=== PATIENT | male | born 1955 | race Caucasian/White ===

== ENCOUNTER 2017-09-09 12:49 | Emergency (ER) | payer MEDICAID, OTHER ==
[~2017-09-09] VITALS: Ht 172.7 cm; Wt 89.4 kg
[~2017-09-09 12:49] MED LIST: ASPI81TA10; BUSP7.5T4; ENAL-3; GABA100C9; HYDR25TA4; LORA-653; TEMA15CA
[2017-09-09 13:55] LABS: Basophils # (auto) 0.1 uL; Basophils % (auto) 1.2 % (0.0-2.0); Eosinophils # (auto) 0.1 uL; Eosinophils % (auto) 2.7 % (0.0-7.0); Hematocrit 45.3 % (41.0-53.0); Hemoglobin 15.9 g/dL (13.5-17.5); Lymphocytes # (auto) 1.1 uL; Lymphocytes % (auto) 19.8 % (10.0-50.0); Mean Corpuscular Hemoglobin 29.8 pg (28.0-32.0); Mean Corpuscular Hgb Conc. 35.1 g/dL (32.0-36.0); Mean Corpuscular Volume 84.9 fL (80.0-100.0); Monocytes # (auto) 0.4 uL; Monocytes % (auto) 7.4 % (0.0-12.0); Neutrophils # (auto) 3.8 uL; Neutrophils % (auto) 68.9 % (37.0-80.0); Platelet Count (auto) 191 10^3/uL (140-450); Red Blood Cells 5.33 10^6/uL (4.5-5.90); Red Cell Distribution Width 13.7 % (11.8-14.3); White Blood Cell 5.5 10^3/uL (4.4-10.8)
[2017-09-09 14:10] LABS: INR 1.05 (0.9-1.15); Partial Thromboplastin Time 25.7 sec (22.64-33.71); Prothrombin Time 11.4 sec (9.37-12.3)
[2017-09-09 14:15] LABS: Albumin 4.4 g/dL (3.4-5.0); BUN/Creatinine Ratio 20.3; Bilirubin, Total 1.6 mg/dL (0.2-1.0); Calcium 8.8 mg/dL (8.5-10.1); Potassium 3.9 mmol/L (3.5-5.1); Total Protein 8.1 g/dL (6.4-8.2)
[2017-09-09 15:13] VITALS: BP 152/95
== END 2017-09-09 15:25 | disposition home or self-care (01) ==
LOC: ER 12:49
DX: R04.0 Epistaxis (principal); I10 Essential (primary) hypertension; R42 Dizziness and giddiness; Z79.899 Other long term (current) drug therapy; Z79.82 Long term (current) use of aspirin
CPT/HCPCS: 36415; 70450; 80053; 85025; 85610; 85730; 93005

== ENCOUNTER 2017-09-12 08:29 | Emergency (ER) | payer MEDICAID ==
[~2017-09-12] VITALS: Ht 175.3 cm; Wt 90.8 kg
[2017-09-12 08:35] VITALS: BP 144/82
== END 2017-09-12 09:21 | disposition home or self-care (01) ==
LOC: ER 08:29
DX: R04.0 Epistaxis (principal); I10 Essential (primary) hypertension; Z90.89 Acquired absence of other organs

== ENCOUNTER 2017-09-22 13:56 | Emergency (ER) | payer SELFPAY ==
[~2017-09-22] VITALS: Ht 172.7 cm; Wt 90.7 kg
[2017-09-22] MEDS ORDERED: SODIUM CHLORIDE 0.9% 1,000 ML IVB ONE (14:25)
[2017-09-22] MEDS ORDERED: ASPirin 81 mg TAB PO ONE (14:30)
[2017-09-22] MEDS ORDERED: DILTIAZEM HCL 25 MG/5 ML VIAL IV ONE (14:30)
[2017-09-22] MEDS ORDERED: DILTIAZEM HCL 120MG ER CAP PO ONE (14:45)
[2017-09-22 14:56] LABS: Basophils # (auto) 0.1 uL; Eosinophils # (auto) 0.1 uL; Eosinophils % (auto) 1.8 % (0.0-7.0); Hematocrit 36.8 % (41.0-53.0); Lymphocytes # (auto) 1.1 uL; Lymphocytes % (auto) 16.6 % (10.0-50.0); Mean Corpuscular Hemoglobin 30.1 pg (28.0-32.0); Mean Corpuscular Hgb Conc. 35.4 g/dL (32.0-36.0); Mean Corpuscular Volume 85.2 fL (80.0-100.0); Monocytes # (auto) 0.6 uL; Monocytes % (auto) 9.4 % (0.0-12.0); Neutrophils # (auto) 4.6 uL; Neutrophils % (auto) 70.2 % (37.0-80.0); Nucleated Red Blood Cells % 0.1 %; Platelet Count (auto) 244 10^3/uL (140-450); Red Blood Cells 4.32 10^6/uL (4.5-5.90); Red Cell Distribution Width 13.8 % (11.8-14.3); White Blood Cell 6.6 10^3/uL (4.4-10.8)
[2017-09-22 15:20] LABS: Alanine Aminotransferase 20 U/L (16-61); Albumin 3.8 g/dL (3.4-5.0); Alkaline Phosphatase 60 U/L (45-117); Anion Gap 12 (5-15); Aspartate Aminotransferase 15 U/L (15-37); BUN/Creatinine Ratio 20.9; Bilirubin, Total 1.2 mg/dL (0.2-1.0); Blood Urea Nitrogen 18 mg/dL (7-18); Calcium 7.9 mg/dL (8.5-10.1); Carbon Dioxide 18 mmol/L (21-32); Chloride 109 mmol/L (98-107); GFR African American 115 mL/min; GFR Non-African American 95 mL/min; Glucose 93 mg/dL (74-106); Magnesium 1.9 mg/dL (1.6-2.6); Potassium 3.5 mmol/L (3.5-5.1); Sodium 139 mmol/L (136-145); Total Protein 6.8 g/dL (6.4-8.2)
[2017-09-22 16:22] VITALS: BP 129/77
== END 2017-09-22 16:53 | disposition home or self-care (01) ==
LOC: ER 13:56
DX: I47.1 Supraventricular tachycardia (principal); Z90.89 Acquired absence of other organs
CPT/HCPCS: 36415; 71046; 80053; 83735; 84443; 84484; 85025; 85379; 93005; 94761; 99285; J7030

== ENCOUNTER 2019-03-07 11:25 | Emergency (ER) | payer OTHER, MEDICAID ==
[~2019-03-07] VITALS: Ht 175.3 cm; Wt 81.6 kg
[~2019-03-07 11:25] MED LIST changes: -ENAL-3; +ENAL10TA2; -LORA-653; +LORA0.5T11
[2019-03-07 12:28] LABS: Basophils # (auto) 0.1 uL; Basophils % (auto) 1.7 % (0.0-2.0); Eosinophils # (auto) 0.1 uL; Eosinophils % (auto) 1.9 % (0.0-7.0); Hemoglobin 14.6 g/dL (13.5-17.5); Lymphocytes # (auto) 0.9 uL; Lymphocytes % (auto) 15.9 % (10.0-50.0); Mean Corpuscular Hemoglobin 30.1 pg (28.0-32.0); Mean Corpuscular Hgb Conc. 34.7 g/dL (32.0-36.0); Mean Corpuscular Volume 86.7 fL (80.0-100.0); Monocytes # (auto) 0.5 uL; Monocytes % (auto) 8.4 % (0.0-12.0); Neutrophils # (auto) 4.1 uL; Neutrophils % (auto) 72.1 % (37.0-80.0); Platelet Count (auto) 189 10^3/uL (140-450); Red Blood Cells 4.85 10^6/uL (4.5-5.90); Red Cell Distribution Width 14.8 % (11.8-14.3); White Blood Cell 5.8 10^3/uL (4.4-10.8)
[2019-03-07 12:43] LABS: Alanine Aminotransferase 33 U/L (16-61); Albumin 3.8 g/dL (3.4-5.0); Anion Gap 7 (5-15); Blood Urea Nitrogen 21 mg/dL (7-18); Calcium 8.6 mg/dL (8.5-10.1); Carbon Dioxide 25 mmol/L (21-32); Chloride 108 mmol/L (98-107); Glucose 101 mg/dL (74-106); Potassium 3.8 mmol/L (3.5-5.1); Sodium 140 mmol/L (136-145)
[2019-03-07 12:49] LABS: Alkaline Phosphatase 56 U/L (45-117); Aspartate Aminotransferase 16 U/L (15-37); BUN/Creatinine Ratio 26.3; Bilirubin, Total 1.3 mg/dL (0.2-1.0); GFR African American 125 mL/min; GFR Non-African American 103 mL/min; Total Protein 7.6 g/dL (6.4-8.2)
[2019-03-07 12:53] LABS: INR 1.01 (0.9-1.15)
[2019-03-07 15:03] VITALS: BP 144/78
== END 2019-03-07 15:31 | disposition home or self-care (01) ==
LOC: ER 11:25
DX: R41.3 Other amnesia (principal); I10 Essential (primary) hypertension; Z90.89 Acquired absence of other organs; F41.9 Anxiety disorder, unspecified
CPT/HCPCS: 36415; 70450; 71046; 80053; 84484; 85025; 85610; 85730; 93005; 94761

== ENCOUNTER 2021-04-03 10:41 | Emergency (ER) | payer OTHER, MEDICAID ==
[~2021-04-03] VITALS: Ht 172.7 cm; Wt 90.7 kg
[~2021-04-03 10:41] MED LIST changes: -BUSP7.5T4; +BUSP7.5T8; +ENAL10TA13; -ENAL10TA2; -LORA0.5T11; +LORA0.5T19
[2021-04-03] MEDS ORDERED: SODIUM CHLORIDE 0.9% 500 ML IV ONE (11:15)
[2021-04-03 11:33] LABS: Basophils # (auto) 0.1 10 ^3/uL (0-0.2); Basophils % (auto) 1.9 % (0.0-2.0); Eosinophils # (auto) 0.1 10 ^3/uL (0-0.8); Hematocrit 44.5 % (41.0-53.0); Hemoglobin 15.5 g/dL (13.5-17.5); Lymphocytes # (auto) 1.2 10 ^3/uL (0.4-5.4); Lymphocytes % (auto) 25.2 % (10.0-50.0); Mean Corpuscular Hemoglobin 29.3 pg (28.0-32.0); Mean Corpuscular Hgb Conc. 34.9 g/dL (32.0-36.0); Mean Corpuscular Volume 83.9 fL (80.0-100.0); Monocytes # (auto) 0.4 10 ^3/uL (0-1.3); Monocytes % (auto) 8.6 % (0.0-12.0); Neutrophils % (auto) 61.3 % (37.0-80.0); Red Cell Distribution Width 14.3 % (11.8-14.3); White Blood Cell 4.9 10^3/uL (4.4-10.8)
[2021-04-03 11:37] LABS: Urine Bacteria NONE SEEN /hpf (None Seen); Urine Blood Negative /uL (Negative); Urine Mucus FEW (None Seen); Urine Specific Gravity 1.019 (1.001-1.035); Urine WBC 2 /hpf (0 - 3)
[2021-04-03 11:50] LABS: Potassium 4.9 mmol/L (3.5-5.1)
[2021-04-03 11:53] LABS: Albumin 4.1 g/dL (3.4-5.0); BUN/Creatinine Ratio 16.2; Calcium 9.5 mg/dL (8.5-10.1); Magnesium 2.3 mg/dL (1.6-2.6)
[2021-04-03 11:56] LABS: Bilirubin, Total 0.9 mg/dL (0.2-1.0)
[2021-04-03] MEDS ORDERED: cefTRIAXone 1GM/50ML D5W 50 ML IV ONE (12:15)
[2021-04-03 12:29] VITALS: BP 131/75
== END 2021-04-03 13:04 | disposition home or self-care (01) ==
LOC: ER 10:41
DX: N39.0 Urinary tract infection, site not specified (principal); R42 Dizziness and giddiness; I10 Essential (primary) hypertension; Z87.442 Personal history of urinary calculi
CPT/HCPCS: 36415; 74176; 80053; 81001; 83735; 85025; 93005; 96365; 99285; J0696; J7030

== ENCOUNTER 2021-10-19 11:49 | Emergency (ER) | payer OTHER, MEDICAID ==
[~2021-10-19] VITALS: Ht 172.7 cm; Wt 95.3 kg
[2021-10-19 11:55] VITALS: BP 121/76
[2021-10-19 12:43] LABS: Urine Bacteria NONE SEEN /hpf (None Seen); Urine Blood Negative /uL (Negative); Urine Specific Gravity 1.025 (1.001-1.035); Urine WBC 1 /hpf (0 - 3)
[2021-10-19 13:21] LABS: Basophils # (auto) 0.1 10 ^3/uL (0-0.2); Basophils % (auto) 2.1 % (0.0-2.0); Eosinophils # (auto) 0.2 10 ^3/uL (0-0.8); Eosinophils % (auto) 4.3 % (0.0-7.0); Hematocrit 42.9 % (41.0-53.0); Hemoglobin 15.1 g/dL (13.5-17.5); Lymphocytes # (auto) 1.1 10 ^3/uL (0.4-5.4); Mean Corpuscular Hemoglobin 29.6 pg (28.0-32.0); Mean Corpuscular Hgb Conc. 35.3 g/dL (32.0-36.0); Monocytes # (auto) 0.4 10 ^3/uL (0-1.3); Monocytes % (auto) 8.9 % (0.0-12.0); Neutrophils # (auto) 2.5 10 ^3/uL (1.6-8.6); Neutrophils % (auto) 58.7 % (37.0-80.0); Nucleated Red Blood Cells % 0.2 %; Red Blood Cells 5.11 10^6/uL (4.5-5.90); Red Cell Distribution Width 13.8 % (11.8-14.3); White Blood Cell 4.3 10^3/uL (4.4-10.8)
[2021-10-19 13:32] LABS: Albumin 4.2 g/dL (3.4-5.0); Calcium 8.9 mg/dL (8.5-10.1); Potassium 4.6 mmol/L (3.5-5.1)
[2021-10-19 13:34] LABS: BUN/Creatinine Ratio 27.7; Bilirubin, Total 1.1 mg/dL (0.2-1.0)
== END 2021-10-19 15:12 | disposition home or self-care (01) ==
LOC: ER 11:49
DX: R31.9 Hematuria, unspecified (principal); I10 Essential (primary) hypertension; Z90.89 Acquired absence of other organs
CPT/HCPCS: 36415; 80053; 81001; 85025; 93005

== ENCOUNTER 2021-11-09 10:52 | Emergency (ER) | payer OTHER, MEDICAID ==
[~2021-11-09] VITALS: Ht 172.7 cm; Wt 95.3 kg
[2021-11-09] MEDS ORDERED: SODIUM CHLORIDE 0.9% 1,000 ML IV ONE (11:45)
[2021-11-09] MEDS ORDERED: SODIUM CHLORIDE 0.9% 500 ML IVB ONE (11:45)
[2021-11-09 11:53] LABS: Basophils # (auto) 0.1 10 ^3/uL (0-0.2); Basophils % (auto) 1.3 % (0.0-2.0); Eosinophils # (auto) 0.1 10 ^3/uL (0-0.8); Eosinophils % (auto) 1.9 % (0.0-7.0); Hematocrit 42.3 % (41.0-53.0); Hemoglobin 14.7 g/dL (13.5-17.5); Lymphocytes # (auto) 0.8 10 ^3/uL (0.4-5.4); Lymphocytes % (auto) 17.3 % (10.0-50.0); Mean Corpuscular Hemoglobin 29.3 pg (28.0-32.0); Mean Corpuscular Hgb Conc. 34.7 g/dL (32.0-36.0); Mean Corpuscular Volume 84.7 fL (80.0-100.0); Monocytes # (auto) 0.3 10 ^3/uL (0-1.3); Monocytes % (auto) 7.3 % (0.0-12.0); Neutrophils # (auto) 3.4 10 ^3/uL (1.6-8.6); Neutrophils % (auto) 72.2 % (37.0-80.0); Nucleated Red Blood Cells % 0.1 %; Red Cell Distribution Width 13.6 % (11.8-14.3); White Blood Cell 4.7 10^3/uL (4.4-10.8)
[2021-11-09 12:08] LABS: Urine Bacteria NONE SEEN /hpf (None Seen); Urine Blood Negative /uL (Negative); Urine Specific Gravity 1.021 (1.001-1.035); Urine WBC 1 /hpf (0 - 3)
[2021-11-09 12:15] LABS: Albumin 4.4 g/dL (3.4-5.0); BUN/Creatinine Ratio 27.8; Potassium 4.1 mmol/L (3.5-5.1)
[2021-11-09 12:17] LABS: Bilirubin, Total 0.8 mg/dL (0.2-1.0); Total Protein 7.7 g/dL (6.4-8.2)
[2021-11-09] MEDS ORDERED: KETOROLAC TROMETH 30 MG/ML 1ML VIAL IV ONE (13:00)
[2021-11-09 14:20] VITALS: BP 162/73
[2021-11-09] MEDS ORDERED: NAPR220C PO ×2 (15:34→15:57)
[2021-11-09] MEDS ORDERED: CYCL-837 PO ×2 (15:34→15:57)
== END 2021-11-09 16:03 | disposition home or self-care (01) ==
LOC: ER 10:52
DX: M54.12 Radiculopathy, cervical region (principal); F41.8 Other specified anxiety disorders; G30.9 Alzheimer's disease, unspecified; F02.80 Dementia in other diseases classified elsewhere, unspecified severity, without behavioral disturbance, psychotic disturbance, mood disturbance, and anxiety; I10 Essential (primary) hypertension; Z90.89 Acquired absence of other organs
CPT/HCPCS: 36415; 70450; 71045; 72125; 80053; 81001; 83735; 84443; 84484; 85025; 93005; 96361; 96374; 99285; J1885; J7030; J7040

== ENCOUNTER 2022-11-30 14:24 | Emergency (ER) | payer OTHER, MEDICAID ==
[~2022-11-30] VITALS: Ht 175.3 cm; Wt 86.5 kg
[~2022-11-30 14:24] MED LIST changes: +CYCL-837 PO; -ENAL10TA13; +ENAL1TAB47; +GABA-1308; -GABA100C9; +LORA-1120; -LORA0.5T19; +NAPR220C PO
[2022-11-30 14:53] LABS: Basophils # (auto) 0.1 10 ^3/uL (0-0.2); Basophils % (auto) 1.2 % (0.0-2.0); Eosinophils # (auto) 0.1 10 ^3/uL (0-0.8); Eosinophils % (auto) 1.8 % (0.0-7.0); Hematocrit 40.1 % (41.0-53.0); Hemoglobin 13.6 g/dL (13.5-17.5); Lymphocytes # (auto) 0.9 10 ^3/uL (0.4-5.4); Lymphocytes % (auto) 17.1 % (10.0-50.0); Mean Corpuscular Hemoglobin 28.6 pg (28.0-32.0); Mean Corpuscular Volume 84.2 fL (80.0-100.0); Monocytes # (auto) 0.4 10 ^3/uL (0-1.3); Monocytes % (auto) 8.3 % (0.0-12.0); Neutrophils # (auto) 3.7 10 ^3/uL (1.6-8.6); Neutrophils % (auto) 71.6 % (37.0-80.0); Nucleated Red Blood Cells % 0.1 %; Red Blood Cells 4.77 10^6/uL (4.5-5.90); Red Cell Distribution Width 14.6 % (11.8-14.3); White Blood Cell 5.2 10^3/uL (4.4-10.8)
[2022-11-30 15:11] LABS: Calcium 8.9 mg/dL (8.5-10.1); Potassium 4.1 mmol/L (3.5-5.1)
[2022-11-30 15:16] LABS: BUN/Creatinine Ratio 15.7 (10.0-20.0); Total Protein 7.1 g/dL (6.4-8.2)
[2022-11-30 15:19] LABS: INR 1.09 (0.9-1.15); Partial Thromboplastin Time 26.3 SEC (24.5-34.5)
[2022-11-30 15:26] LABS: Urine Bacteria NONE SEEN /hpf (None Seen); Urine Blood Negative /uL (Negative); Urine Mucus FEW (None Seen); Urine WBC 1 /hpf (0 - 3)
[2022-11-30 17:35] VITALS: BP 133/80
== END 2022-11-30 17:37 | disposition home or self-care (01) ==
LOC: ER 14:24
DX: R07.89 Other chest pain (principal); F41.9 Anxiety disorder, unspecified; I10 Essential (primary) hypertension; Z87.442 Personal history of urinary calculi; Z90.89 Acquired absence of other organs; Z79.82 Long term (current) use of aspirin; Z79.899 Other long term (current) drug therapy
CPT/HCPCS: 36415; 71045; 80053; 81001; 84484; 85025; 85610; 85730; 93005

== ENCOUNTER 2023-02-09 13:03 | Emergency (ER) | payer OTHER, MEDICAID ==
[~2023-02-09] VITALS: Ht 175.3 cm; Wt 88.6 kg
[2023-02-09 17:02] LABS: Basophils # (auto) 0.1 10 ^3/uL (0-0.2); Basophils % (auto) 1.2 % (0.0-2.0); Eosinophils # (auto) 0.1 10 ^3/uL (0-0.8); Eosinophils % (auto) 1.6 % (0.0-7.0); Hematocrit 43.3 % (41.0-53.0); Hemoglobin 14.8 g/dL (13.5-17.5); Lymphocytes # (auto) 1.4 10 ^3/uL (0.4-5.4); Lymphocytes % (auto) 19.3 % (10.0-50.0); Mean Corpuscular Hemoglobin 29.9 pg (28.0-32.0); Mean Corpuscular Hgb Conc. 34.2 g/dL (32.0-36.0); Mean Corpuscular Volume 87.2 fL (80.0-100.0); Monocytes # (auto) 0.6 10 ^3/uL (0-1.3); Monocytes % (auto) 7.6 % (0.0-12.0); Neutrophils # (auto) 5.3 10 ^3/uL (1.6-8.6); Neutrophils % (auto) 70.3 % (37.0-80.0); Nucleated Red Blood Cells % 0.1 %; Red Blood Cells 4.97 10^6/uL (4.5-5.90); Red Cell Distribution Width 14.6 % (11.8-14.3); White Blood Cell 7.5 10^3/uL (4.4-10.8)
[2023-02-09 17:19] LABS: INR 1.13 (0.9-1.15); Prothrombin Time 11.8 sec (9.3-11.8)
[2023-02-09 17:23] LABS: Alanine Aminotransferase 12 U/L (7-40); Albumin 5.3 g/dL (3.2-4.8); Alkaline Phosphatase 71 U/L (46-116); Anion Gap 8 (5-15); Aspartate Aminotransferase 23 U/L (13-40); BUN/Creatinine Ratio 24.1 (10.0-20.0); Bilirubin, Total 1.5 mg/dL (0.2-1.0); Blood Urea Nitrogen 26 mg/dL (9-23); Calcium 9.9 mg/dL (8.7-10.4); Carbon Dioxide 24 mmol/L (20-30); Chloride 106 mmol/L (98-107); Glucose 92 mg/dL (74-106); Potassium 4.2 mmol/L (3.5-5.1); Sodium 138 mmol/L (136-145); Total Protein 7.4 g/dL (5.7-8.2)
[2023-02-09] MEDS ORDERED: SODIUM CHLORIDE 0.9% 1,000 ML IV ONE (19:45)
[2023-02-09 23:02] VITALS: BP 132/74; PULSE 68; RESP 18; TEMP 98.2; O2SAT 98
== END 2023-02-09 23:05 | disposition home or self-care (01) ==
LOC: EDBD 13:03 → ER 13:03 → EDUNIT# 13:03 → ER 23:05
DX: G20 Parkinson's disease (principal); F41.9 Anxiety disorder, unspecified; I10 Essential (primary) hypertension; Z79.899 Other long term (current) drug therapy; Z87.442 Personal history of urinary calculi; Z90.89 Acquired absence of other organs
CPT/HCPCS: 36415; 71045; 71275; 80053; 83880; 84484; 85025; 85379; 85610; 93005

== ENCOUNTER 2023-05-24 16:21 | Inpatient (IN) | payer OTHER, MEDICAID ==
[~2023-05-24] VITALS: Ht 172.7 cm; Wt 72.7 kg
[2023-05-24 17:27] LABS: Basophils # (auto) 0 10 ^3/uL (0-0.2); Basophils % (auto) 0.8 % (0.0-2.0); Eosinophils # (auto) 0 10 ^3/uL (0-0.8); Eosinophils % (auto) 0.8 % (0.0-7.0); Hematocrit 36.6 % (41.0-53.0); Hemoglobin 12.5 g/dL (13.5-17.5); Lymphocytes # (auto) 0.5 10 ^3/uL (0.4-5.4); Lymphocytes % (auto) 9.1 % (10.0-50.0); Mean Corpuscular Hemoglobin 29.9 pg (28.0-32.0); Mean Corpuscular Hgb Conc. 34.1 g/dL (32.0-36.0); Mean Corpuscular Volume 87.7 fL (80.0-100.0); Monocytes # (auto) 0.5 10 ^3/uL (0-1.3); Monocytes % (auto) 8.8 % (0.0-12.0); Neutrophils # (auto) 4.8 10 ^3/uL (1.6-8.6); Neutrophils % (auto) 80.5 % (37.0-80.0); Red Blood Cells 4.17 10^6/uL (4.5-5.90); Red Cell Distribution Width 13.8 % (11.8-14.3)
[2023-05-24 17:45] LABS: Albumin 4.4 g/dL (3.2-4.8); Alkaline Phosphatase 67 U/L (46-116); Anion Gap 9 (5-15); Aspartate Aminotransferase 18 U/L (13-40); BUN/Creatinine Ratio 26.5 (10.0-20.0); Bilirubin, Total 1.3 mg/dL (0.2-1.0); Blood Urea Nitrogen 35 mg/dL (9-23); Calcium 8.9 mg/dL (8.7-10.4); Carbon Dioxide 24 mmol/L (20-30); Chloride 107 mmol/L (98-107); Glucose 103 mg/dL (74-106); Potassium 4.7 mmol/L (3.5-5.1); Sodium 140 mmol/L (136-145); Total Protein 6.5 g/dL (5.7-8.2)
[2023-05-24 17:48] LABS: Alanine Aminotransferase 9 U/L (7-40)
[2023-05-24] MEDS ORDERED: SODIUM CHLORIDE 0.9% 1,000 ML IVB ONE (18:45)
[2023-05-24 20:27] VITALS: PULSE 58; RESP 20; O2SAT 98
[2023-05-24] MEDS ORDERED: ONDANSETRON HCL 4 MG/2 ML VIAL IV PRN (21:45)
[2023-05-24] MEDS: CARBIDOPA W LEVODOPA 25/100mg TABLET PO SCH (22:17)
[2023-05-24] MEDS: DONEPEZIL HYDROCHLORIDE 5 MG TAB PO SCH (22:17)
[2023-05-25] MEDS: CARBIDOPA W LEVODOPA 25/100mg TABLET PO SCH ×3 (06:04→21:28)
[2023-05-25 06:38] LABS: Anion Gap 9 (5-15); Carbon Dioxide 23 mmol/L (20-30); Chloride 109 mmol/L (98-107); Potassium 3.9 mmol/L (3.5-5.1); Sodium 141 mmol/L (136-145)
[2023-05-25 06:39] LABS: Calcium 9.1 mg/dL (8.7-10.4)
[2023-05-25 06:44] LABS: BUN/Creatinine Ratio 23.2 (10.0-20.0); Blood Urea Nitrogen 26 mg/dL (9-23); Glucose 84 mg/dL (74-106)
[2023-05-25 08:00] VITALS: PULSE 65; RESP 16; O2SAT 98
[2023-05-25 08:15] LABS: Urine Bacteria FEW /hpf (None Seen); Urine Blood Negative /uL (Negative); Urine Clarity Clear (Clear); Urine Color Yellow (Yellow); Urine Mucus FEW (None Seen); Urine Protein, UAD TRACE (Negative); Urine Specific Gravity 1.021 (1.001-1.035); Urine Urobilinogen Normal (Negative); Urine WBC 2 /hpf (0 - 3); Urine pH 5.5 (5.0-8.0)
[2023-05-25] MEDS: ENOXAPARIN SOD 40 MG/0.4 ML SYRINGE SC SCH (09:43)
[2023-05-25] MEDS: cefTRIAXone 1GM/50ML D5W 50 ML IV SCH (09:43)
[2023-05-25] MEDS: FINASTERIDE 5 MG TAB PO SCH ×2 (09:43→16:09)
[2023-05-25] MEDS: hydrALAZINE HCL 20 MG/ML VL IV PRN ×2 (10:34→21:31)
[2023-05-25 12:48] VITALS: PULSE 78; RESP 17; O2SAT 96
[2023-05-25 14:10] VITALS: BP 177/88; PULSE 78; RESP 17; TEMP 98; O2SAT 96
[2023-05-25] MEDS ORDERED: LORazepam 0.5 MG TAB PO PRN (15:00)
[2023-05-25] MEDS: ASPirin-EC 81 mg tab PO SCH (16:07)
[2023-05-25] MEDS: ENALAPRIL MALEATE 10 MG TAB PO SCH (16:07)
[2023-05-25] MEDS: GABAPENTIN 100 MG CAP PO SCH (16:08)
[2023-05-25] MEDS: hydroCHLOROthiazide 25 MG TAB PO SCH (16:08)
[2023-05-25 17:08] VITALS: BP 187/84; PULSE 80; RESP 18; TEMP 98.2; O2SAT 95
[2023-05-25] MEDS ORDERED: TAMSULOSIN HYDROCHLORIDE 0.4 MG CAP PO SCH (18:00)
[2023-05-25 20:00] VITALS: BP 154/67; PULSE 87; RESP 18; RESP 22; TEMP 98.9; O2SAT 97
[2023-05-25] MEDS: DONEPEZIL HYDROCHLORIDE 5 MG TAB PO SCH (21:28)
[2023-05-25 22:00] VITALS: BP 146/82; PULSE 68; RESP 19; TEMP 98; O2SAT 97
[2023-05-26 02:04] VITALS: BP 111/85
[2023-05-26] MEDS ORDERED: ACETAMINOPHEN 325 MG TAB PO ONE (02:30)
[2023-05-26 03:50] VITALS: BP 149/98; PULSE 58; RESP 19; TEMP 98.2; O2SAT 97
[2023-05-26 05:17] VITALS: BP 120/72; PULSE 55
[2023-05-26] MEDS: CARBIDOPA W LEVODOPA 25/100mg TABLET PO SCH (05:52)
[2023-05-26 06:28] LABS: Basophils # (auto) 0.1 10 ^3/uL (0-0.2); Basophils % (auto) 1.6 % (0.0-2.0); Eosinophils # (auto) 0.2 10 ^3/uL (0-0.8); Eosinophils % (auto) 3.5 % (0.0-7.0); Hematocrit 36.8 % (41.0-53.0); Hemoglobin 12.6 g/dL (13.5-17.5); Lymphocytes # (auto) 1.2 10 ^3/uL (0.4-5.4); Lymphocytes % (auto) 21.7 % (10.0-50.0); Mean Corpuscular Hemoglobin 30.1 pg (28.0-32.0); Mean Corpuscular Hgb Conc. 34.2 g/dL (32.0-36.0); Mean Corpuscular Volume 87.9 fL (80.0-100.0); Monocytes # (auto) 0.7 10 ^3/uL (0-1.3); Monocytes % (auto) 12.7 % (0.0-12.0); Neutrophils # (auto) 3.4 10 ^3/uL (1.6-8.6); Neutrophils % (auto) 60.5 % (37.0-80.0); Red Blood Cells 4.19 10^6/uL (4.5-5.90); Red Cell Distribution Width 13.9 % (11.8-14.3); White Blood Cell 5.6 10^3/uL (4.4-10.8)
[2023-05-26 06:47] LABS: Chloride 107 mmol/L (98-107); Potassium 3.7 mmol/L (3.5-5.1); Sodium 140 mmol/L (136-145)
[2023-05-26 06:48] LABS: Anion Gap 8 (5-15); Carbon Dioxide 25 mmol/L (20-30)
[2023-05-26 06:49] LABS: Calcium 9.4 mg/dL (8.5-10.1)
[2023-05-26 06:53] LABS: BUN/Creatinine Ratio 17.4 (10.0-20.0); Blood Urea Nitrogen 16 mg/dL (9-23); Glucose 87 mg/dL (74-106)
[2023-05-26 08:00] VITALS: BP 163/87; PULSE 81; RESP 18; TEMP 98.9; O2SAT 94
[2023-05-26] MEDS: ENOXAPARIN SOD 40 MG/0.4 ML SYRINGE SC SCH (09:09)
[2023-05-26] MEDS: cefTRIAXone 1GM/50ML D5W 50 ML IV SCH (09:09)
[2023-05-26] MEDS: hydroCHLOROthiazide 25 MG TAB PO SCH (09:10)
[2023-05-26] MEDS: ASPirin-EC 81 mg tab PO SCH (09:10)
[2023-05-26] MEDS: ENALAPRIL MALEATE 10 MG TAB PO SCH (09:10)
[2023-05-26] MEDS: GABAPENTIN 100 MG CAP PO SCH (09:10)
[2023-05-26] MEDS: FINASTERIDE 5 MG TAB PO SCH (09:12)
[2023-05-26] MEDS ORDERED: GABAPENTIN 100 MG CAP PO SCH (10:00)
[2023-05-26] MEDS ORDERED: ENALAPRIL MALEATE 10 MG TAB PO SCH (10:00)
[2023-05-26] MEDS ORDERED: ASPirin-EC 81 mg tab PO SCH (10:00)
[2023-05-26] MEDS ORDERED: hydroCHLOROthiazide 25 MG TAB PO SCH (10:00)
== END 2023-05-26 13:32 | disposition home or self-care (01) | DRG 312 ==
LOC: EDBD 16:21 → ER 16:21 → OVERFLOW 21:48 → TELE-WESTW 21:48 → WEST WING 05-25 11:58 → TELE-WESTW 05-25 13:24
PROVIDERS: ADMIT Internal Medicine Pulmonary Disease; ATTEND Internal Medicine Pulmonary Disease
DX: I95.2 Hypotension due to drugs (principal); N17.9 Acute kidney failure, unspecified; N39.0 Urinary tract infection, site not specified; N18.9 Chronic kidney disease, unspecified; F41.9 Anxiety disorder, unspecified; I12.9 Hypertensive chronic kidney disease with stage 1 through stage 4 chronic kidney disease, or unspecified chronic kidney disease; G20.A1 Parkinson's disease without dyskinesia, without mention of fluctuations; F02.80 Dementia in other diseases classified elsewhere, unspecified severity, without behavioral disturbance, psychotic disturbance, mood disturbance, and anxiety; Z87.442 Personal history of urinary calculi; Z83.3 Family history of diabetes mellitus; Z80.9 Family history of malignant neoplasm, unspecified; N40.1 Benign prostatic hyperplasia with lower urinary tract symptoms
CPT/HCPCS: 36415; 70450; 71045; 74176; 80048; 80053; 81001; 83605; 83690; 84484; 85025; 87040; 87086; 93005; 96361; 96365; 96372; 96375; G0378

== ENCOUNTER 2025-04-04 12:53 | Inpatient (IN) | payer MEDICARE, MEDICAID ==
[~2025-04-04] VITALS: Ht 185.4 cm; Wt 78.1 kg
--- NOTE | 2025-04-04 13:59 | ED.PDOC ---
History of Present Illness HPI Comments Mr. Gibbs is a 69-year-old male with prior medical history of dementia, hypertension, and Parkinson's disease, who presents today due altered mental status and word slurring. Per his Lisa, the patient suddenly became confused and stated he was dizzy and feeling weak, and began slurring his words. He denies headache, loss of consciousness, numbness, focal weakness or paralysis, nausea, vomiting, fever, chest pain, shortness of breath, numbness, diarrhea, dysuria, hematuria, and palpitations. Due to persistence of the symptoms, he was brought to the emergency department by his . On initial presentation, the patient is alert and oriented, vitals are stable, speaking clearly, without signs of overt distress. Chief Complaint: ALOC Time Seen by MD: 12:59 Primary Care Provider: UNKNOWN Allergies: Coded Allergies: NO KNOWN ALLERGIES (Unverified , 09/24/12) Home Meds Active Scripts Cyclobenzaprine Hcl (Cyclobenzaprine Hcl) 5 Mg Tab, 1 TAB PO TID for 15 Days, #45 TAB Prov:GALO GORDILLO MD 11/09/21 Naproxen Sodium (Aleve) 220 Mg Cap, 220 MG PO BID for 10 Days, #20 CAP Prov:GALO GORDILLO MD 11/09/21 Reported Medications Aspirin (Aspirin Ec Low Dose) 81 Mg Tab, #90 01/20/16 Temazepam (Temazepam) 15 Mg Cap, #10 01/20/16 Lorazepam (Lorazepam) 0.5 Mg Tab, #30 01/20/16 Gabapentin (Gabapentin) 100 Mg Cap, #90 01/20/16 Hydrochlorothiazide (Hydrochlorothiazide) 25 Mg Tab, #90 01/20/16 Enalapril Maleate (Enalapril Maleate) 10 Mg Tab, #90 01/20/16 Buspirone Hcl (Buspirone Hcl) 7.5 Mg Tab, #60 01/20/16 Information Source: Patient, Spouse Mode of Arrival: Wheelchair Severity: Mild Timing: Hours Duration: Since onset Past Medical History PAST MEDICAL HISTORY: Anxiety, Dementia, HTN, Kidney Stones, UTI'S Surgical History: Tonsillectomy Family History Family History: Reviewed,noncontributory to illness, Family hx of DM, Family hx of Cancer Social History Smoker: Non-Smoker Alcohol: Rarely Drugs: Denies Drug Use Lives In: Home Constitutional: reports: weakness; denies: chills, diaphoresis, fatigue, fever, malaise, sweats EENTM: denies: blurred vision, double vision, ear ringing, hearing loss, nasal discharge, nose bleeding, nose congestion, photophobia, throat pain, throat swelling Respiratory: denies: cough, hemoptysis, orthopnea, shortness of breath Cardiovascular: reports: dizzy spells; denies: chest pain, diaphoresis, Dyspnea on exertion, edema, irregular heart beat, left arm pain, lightheadedness, palpitations, syncope Gastrointestinal: denies: abdomen distended, abdominal pain, blood streaked bowels, constipated, diarrhea, hematemesis, melena, nausea, poor appetite, poor fluid intake, rectal bleeding, vomiting Genitourinary: denies: burning, dysuria, flank pain, frequency, hematuria, incontinence, pain, urgency Neurological: reports: dizziness, speech problems; denies: fainting, headache, numbness, paresthesia, pre-existing deficit, seizure, tingling, tremors Musculoskeletal: denies: back pain, joint pain, joint swelling, muscle pain, muscle stiffness, neck pain Integumetry: denies: bruises, laceration, lesions, lumps, rash, wounds Physical Exam General Appearance: Mild Distress, Normal HEENT: Normal ENT Inspection, PERRL/EOMI, Pharynx Normal Neck: Full Range of Motion, Non-Tender, Normal Inspection Respiratory: Chest Non-Tender, Lungs Clear, No Accessory Muscle Use, No Respiratory Distress, Normal Breath Sounds Cardiovascular: No Edema, No Murmur, Normal Peripheral Pulses, Regular Rate/Rhythm Breast Exam: Deferred Gastrointestinal: Non Tender, Normal Bowel Sounds, Soft Genitalia: Deferred Pelvic: Deferred Rectal: Deferred Extremities: Decreased range of motion, Normal capillary refill, Normal inspection, Non-tender, No pedal edema Neurologic: Alert, No Motor Deficits, Normal Affect, Normal Mood Cerebellar Function: Tremor Reflexes: NOT DONE Skin: Normal Color Peripheral Pulses: 3+ dorsalis pedis (R), 3+ dorsalis pedis (L) Lymphatic: Other (No cervical adenopathy) Was a procedure done? Was a procedure done?: No EKG EKG : Pulse Rate (adult): 81 [place]: Normal Cardiac Rhythm: NSR Block: None Hypertrophy: None ST: Normal Differential Dx Considerations may include: Stroke, TIA, seizure, complex migraine, sepsis, pneumonia, bronchitis, influenza, covid, UTI X-Ray, Labs, Meds, VS Vital Signs Date Time Temp Pulse Resp B/P (MAP) Pulse Ox O2 Delivery O2 Flow Rate FiO2 04/04/25 13:20 81 04/04/25 12:55 98.0 88 15 101/72 97 98.0 Lab Test 04/04/25 14:06 Range/Units White Blood Count 5.6 4.4-10.8 10^3/uL Red Blood Count 4.30 L 4.5-5.90 10^6/uL Hemoglobin 13.3 L 13.5-17.5 g/dL Hematocrit 38.0 L 41.0-53.0 % Mean Corpuscular Volume 88.5 80.0-100.0 fL Mean Corpuscular Hemoglobin 30.9 28.0-32.0 pg Mean Corpuscular Hemoglobin Concent 34.9 32.0-36.0 g/dL Red Cell Distribution Width 13.4 11.8-14.3 % Platelet Count 187 140-450 10^3/uL Mean Platelet Volume 7.6 6.9-10.8 fL Neutrophils (%) (Auto) 66.7 37.0-80.0 % Lymphocytes (%) (Auto) 17.2 10.0-50.0 % Monocytes (%) (Auto) 8.2 0.0-12.0 % Eosinophils (%) (Auto) 5.7 0.0-7.0 % Basophils (%) (Auto) 2.2 H 0.0-2.0 % Neutrophils # (Auto) 3.8 1.6-8.6 10 ^3/uL Lymphocytes # (Auto) 1.0 0.4-5.4 10 ^3/uL Monocytes # (Auto) 0.5 0-1.3 10 ^3/uL Eosinophils # (Auto) 0.3 0-0.8 10 ^3/uL Basophils # (Auto) 0.1 0-0.2 10 ^3/uL Nucleated Red Blood Cells 0.0 % Sodium Level 141 136-145 mmol/L Potassium Level 4.1 3.5-5.1 mmol/L Chloride Level 103 98-107 mmol/L Carbon Dioxide Level 28 20-31 mmol/L Anion Gap 10 5-15 Blood Urea Nitrogen 25 H 9-23 mg/dL Creatinine 0.90 0.700-1.30 mg/dL Glomerular Filtration Rate Calc 91 >90 mL/min BUN/Creatinine Ratio 27.8 H 10.0-20.0 Serum Glucose 106 74-106 mg/dL Calcium Level 9.3 8.7-10.4 mg/dL Time of 1ST Reevaluation: 14:45 Reevaluation 1ST: Unchanged Patient Education/Counseling: Diagnosis, Treatment Family Education/Counseling: Diagnosis, Treatment Comments The patient presents today with chief complaint of word slurring and generalized weakness On initial evaluation, the patient seems well, vitals were stable, words were clear, without overt signs of distress Physical examination is without positive findings CBC shows mild normocytic anemia, BMP, UA is pending EKG shows sinus rhythm Chest x-ray shows no acute intrapulmonary process Head CT shows no intracranial abnormalities Patient has been given aspirin 162 mg p.o. and atorvastatin 40 mg p.o. Due to suspicion of TIA, the patient will be admitted for further workup and management SEPSIS Sepsis Screen Date sepsis recognized/suspect: Apr 04, 2025 Time Sepsis recognized/suspect: 1301 Recent Procedure: No On Antibiotic Therapy: No Respiratory Rate >20: No Heart Rate >90: No Temp<36 C (96.8 F) or >38.3 C: No SBP <90 or MAP <65 mmHG: No New Acute Mental Status Change: No Is the patient on CPAP, BIPAP,: No Physician Orders Electrocardigram (04/04/25 13:25) Ct Head Cva (04/04/25 13:45) Chest Xray 1 View (04/04/25 13:45) Urinalysis (04/04/25 13:45) Vital Signs Date Time Temp Pulse Resp B/P (MAP) Pulse Ox O2 Delivery O2 Flow Rate FiO2 04/04/25 13:20 81 04/04/25 12:55 98.0 88 15 101/72 97 98.0 Laboratory Tests Test 04/04/25 14:06 White Blood Count 5.6 10^3/uL (4.4-10.8) Departure 1 Departure Time of Disposition: 15:03 Impression: Primary Impression: Metabolic encephalopathy Disposition: 30 STILL A PATIENT Admit to: Tele Condition: Stable Critical Care Note Critical Care Time?: No Stability Stability form required: VASYL Wright RESIDENT Apr 04, 2025 13:59
--- NOTE | 2025-04-04 14:27 | DVH ---
EXAM: XY CHEST XRAY 1 VIEW Indication: cough Technique: Single frontal view of the chest was obtained Comparison: XR CHEST 1 VIEW on DOS: 10/11/23, XY CHEST PORTABLE on DOS: 05/25/23, XY CHEST XRAY 1 VIEW on DOS: 02/09/23, XY CHEST PORTABLE on DOS: 11/30/22, CXR1 on DOS: 11/09/21 FINDINGS: Lines and Tubes: None Lungs: No focal consolidation. Pleura: No effusion. No pneumothorax. Cardiomediastinal contours: Unremarkable Bones: No acute osseous abnormality. IMPRESSION: No acute cardiopulmonary disease.
--- NOTE | 2025-04-04 14:29 | DVH ---
Procedure: CT STROKE [facility] Study Date and Requested Time: 04/04/2025 01:55 PM History: r/o stroke Comparison: CT BRAIN on DOS: 10/11/23, HEAD WITHOUT CONTRAST on DOS: 11/09/21, HEAD WITHOUT CONTRAST on DOS: 03/07/19 Dose: CTDI: 63.46 mGy DLP: 1144.01 mGycm Technique: Multiplanar images obtained through the brain without intravenous contrast. Findings: Moderate Diffuse brain atrophy. Mild chronic small vessel ischemic changes. No hemorrhages, masses, mass effect, midline shift, herniation or cytotoxic edema following a large vascular territory. No intra-axial or extra-axial fluid collections. No evidence of hydrocephalus. The basal cisterns are patent. The pituitary gland, sella and parasellar regions are unremarkable. The cerebellar tonsils are in normal position. The cerebellum is unremarkable. The orbits and globes are unremarkable. Small mucous retention cyst within the right maxillary sinus. Otherwise, the paranasal sinuses and mastoids are clear. There are no worrisome calvarial lesions. Impression: No evidence of acute intracranial abnormality. Critical Result: Stroke Alert Findings discussed with Dr. Marx, at 04/04/2025 02:26 PM, and acknowledged receipt and understanding of the findings. ..
[2025-04-04 14:34] LABS: Hematocrit 38.0 % (41.0-53.0); Hemoglobin 13.3 g/dL (13.5-17.5); Mean Corpuscular Hemoglobin 30.9 pg (28.0-32.0); Mean Corpuscular Volume 88.5 fL (80.0-100.0); Nucleated Red Blood Cells % 0.0 %
[2025-04-04 14:51] LABS: Chloride 103 mmol/L (98-107); Potassium 4.1 mmol/L (3.5-5.1); Sodium 141 mmol/L (136-145)
[2025-04-04 14:52] LABS: Anion Gap 10 (5-15); Calcium 9.3 mg/dL (8.7-10.4); Carbon Dioxide 28 mmol/L (20-31)
[2025-04-04 14:57] LABS: BUN/Creatinine Ratio 27.8 (10.0-20.0); Blood Urea Nitrogen 25 mg/dL (9-23); Glucose 106 mg/dL (74-106)
[2025-04-04] MEDS ORDERED: MORPHINE SULFATE INJ 2 MG/ml SYRG IV PRN (15:15)
[2025-04-04] MEDS ORDERED: NITROGLYCERIN 0.4 MG SL TAB SL PRN (15:15)
[2025-04-04] MEDS ORDERED: TEMAZEPAM 15 MG CAP PO PRN (15:15)
[2025-04-04] MEDS ORDERED: MORPHINE SULFATE 4 MG/ML SYR/VIAL IV PRN (15:15)
[2025-04-04] MEDS ORDERED: ONDANSETRON HCL 4 MG/2 ML VIAL IV PRN (15:15)
[2025-04-04] MEDS: SODIUM CHLORIDE 0.9% 1,000 ML IV SCH (15:15)
[2025-04-04] MEDS ORDERED: DOCUSATE SOD 100 MG CAP PO PRN (15:15)
[2025-04-04] MEDS: ATORVASTATIN 20 MG TAB PO ONE (15:32)
--- NOTE | 2025-04-04 15:53 | DVHHPRES ---
History of Present Illness Resident Creating Document: SAUL OZUNA RESIDENT History of Present Illness Mr. Gibbs is a 69-year-old male with a history of dementia, hypertension, and Parkinsons disease who presents with acute altered mental status and slurred speech Complicated with 3 days earlier onset of sudden dizziness.. Per his , symptoms began suddenly with confusion, dizziness, and generalized weakness, followed by word slurring. He denies headache, loss of consciousness, Fall, sick contact, focal weakness, paralysis, nausea, vomiting, fever, chest pain, shortness of breath, diarrhea, dysuria, hematuria, or palpitations. Due to persistence of symptoms, he was brought to the ED by his . On arrival, he is alert and oriented, vitals stable, speaking clearly, and in no apparent distress. Past Medical History: Anxiety, Dementia, Parkinsonism, HTN, Kidney Stones, UTI'S Surgical History: Tonsillectomy Family History: Noncontributory to illness. Social History: Smoker None, Denies Drug Use and Alcohol and Home , with and son. Review of Systems Constitutional: Yes: Weakness, Malaise; No: Fever, Chills, Sweats, Other Eyes: No: Pain, Vision change, Conjunctivae inflammation, Eyelid inflammation, Other, Redness ENT: No: Ear pain, Ear discharge, Nose pain, Nose discharge, Nose congestion, Mouth pain, Mouth swelling, Throat pain, Throat swelling, Other Respiratory: No: Cough, Dry, Shortness of breath, SOB with excertion, Wheezing, Hemoptysis, Pleuritic Pain, Sputum, Wheezing, Other Cardiovascular: No: Chest Pain, Palpitations, Orthopnea, Paroxysmal Noc. Dyspnea, Edema, Lt Headedness, Other Gastrointestinal: No: Nausea, Vomiting, Abdominal Pain, Diarrhea, Constipation, Melena, Hematochezia, Other Genitourinary: No Dysuria, No Frequency, No Incontinence, No Hematuria, No Retention, No Other Musculoskeletal: back pain Skin: No: Rash, Lesions, Jaundice, Bruising, Other Neurological: Weakness, Numbness, Incoordination, Change in speech, Confusion; No: Seizures, Other Allergies: Coded Allergies: NO KNOWN ALLERGIES (Unverified , 09/24/12) Medications Current Medications Medications Dose Ordered Sig/Manjula Route Start Time Stop Time Status Last Admin Dose Admin Sodium Chloride 1,000 ml @ 60 mls/hr [id number] IV 04/04/25 15:15 Temazepam 15 mg QHSP PRN PO 04/04/25 15:15 Ondansetron HCl 4 mg Q4HP PRN IV 04/04/25 15:15 Docusate Sodium 100 mg BIDPRN PRN PO 04/04/25 15:15 Acetaminophen 650 mg Q6HP PRN PO 04/04/25 15:15 Morphine Sulfate 2 mg Q4HPRN PRN IV 04/04/25 15:15 Nitroglycerin 0.4 mg Q5MINP PRN SL 04/04/25 15:15 Morphine Sulfate 2 mg Q30M PRN IV 04/04/25 15:15 Aspirin 81 mg DAILY PO 04/05/25 10:00 Atorvastatin Calcium 40 mg HS PO 04/05/25 22:00 Exam Vital Signs Vital Signs Date Time Temp Pulse Resp B/P (MAP) Pulse Ox O2 Delivery O2 Flow Rate FiO2 04/04/25 15:24 81 04/04/25 12:55 98.0 15 101/72 97 98.0 General Appearance: Alert, Oriented X3, Cooperative, mild distress HEENT: Atraumatic, PERRLA, EOMI, Other (Dry mucous membrane.) Respiratory: Clear to auscultation, Normal air movement, Other (Breathing room air, comfortable.) Cardiovascular: Regular rate, Normal S1, Normal S2, No murmurs, Gallops Abdominal: Normal bowel sounds, Soft, No tenderness, No hepatospenomegaly, No masses Extremities: No clubbing, No cyanosis, No edema, Normal pulses, No tenderness/swelling Skin: No rashes, No breakdown, No significant lesion (Age-related pigmentations.) Neuro: Normal tone, Sensation intact, Reflexes 2+, Other (Gait not tested, as patient feels might lose balance, speech normal, cranial nerve functions intact, strength upper arm bilateral equally 4/5, lower limb 2/5,) Psych/Mental Status: Mental status NL, Mood NL, Other (Short-term memory weak, long-term memory persistent.) Labs/Xrays Labs Test 04/04/25 14:06 Range/Units White Blood Count 5.6 4.4-10.8 10^3/uL Red Blood Count 4.30 L 4.5-5.90 10^6/uL Hemoglobin 13.3 L 13.5-17.5 g/dL Hematocrit 38.0 L 41.0-53.0 % Mean Corpuscular Volume 88.5 80.0-100.0 fL Mean Corpuscular Hemoglobin 30.9 28.0-32.0 pg Mean Corpuscular Hemoglobin Concent 34.9 32.0-36.0 g/dL Red Cell Distribution Width 13.4 11.8-14.3 % Platelet Count 187 140-450 10^3/uL Mean Platelet Volume 7.6 6.9-10.8 fL Neutrophils (%) (Auto) 66.7 37.0-80.0 % Lymphocytes (%) (Auto) 17.2 10.0-50.0 % Monocytes (%) (Auto) 8.2 0.0-12.0 % Eosinophils (%) (Auto) 5.7 0.0-7.0 % Basophils (%) (Auto) 2.2 H 0.0-2.0 % Neutrophils # (Auto) 3.8 1.6-8.6 10 ^3/uL Lymphocytes # (Auto) 1.0 0.4-5.4 10 ^3/uL Monocytes # (Auto) 0.5 0-1.3 10 ^3/uL Eosinophils # (Auto) 0.3 0-0.8 10 ^3/uL Basophils # (Auto) 0.1 0-0.2 10 ^3/uL Nucleated Red Blood Cells 0.0 % Sodium Level 141 136-145 mmol/L Potassium Level 4.1 3.5-5.1 mmol/L Chloride Level 103 98-107 mmol/L Carbon Dioxide Level 28 20-31 mmol/L Anion Gap 10 5-15 Blood Urea Nitrogen 25 H 9-23 mg/dL Creatinine 0.90 0.700-1.30 mg/dL Glomerular Filtration Rate Calc 91 >90 mL/min BUN/Creatinine Ratio 27.8 H 10.0-20.0 Serum Glucose 106 74-106 mg/dL Calcium Level 9.3 8.7-10.4 mg/dL SEPSIS Sepsis Screen Date sepsis recognized/suspect: Apr 04, 2025 Time Sepsis recognized/suspect: 1301 Recent Procedure: No On Antibiotic Therapy: No Respiratory Rate >20: No Heart Rate >90: No Temp<36 C (96.8 F) or >38.3 C: No SBP <90 or MAP <65 mmHG: No New Acute Mental Status Change: No Is the patient on CPAP, BIPAP,: No Physician Orders Electrocardigram (04/04/25 13:25) Ct Head Cva (04/04/25 13:45) Chest Xray 1 View (04/04/25 13:45) Urinalysis (04/04/25 13:45) Admit (04/04/25 15:06) Allergies (04/04/25 15:06) Code Status (04/04/25 15:06) Sodium Chloride 0.9% (04/04/25 15:15) Temazepam (Restoril) (04/04/25 15:15) Ondansetron Hcl (Zofran) (04/04/25 15:15) Docusate Sodium Capsule (Colace Capsule) (04/04/25 15:15) Fall Risk Precautions In Place QSHIFT (04/04/25 15:06) Complete Blood Count (04/05/25 04:00) Comprehensive Metabolic Panel (04/05/25 04:00) Npo (Nothing By Mouth) Diet (04/04/25 Dinner) Pt Request For Service (04/04/25 15:06) * Swallow Request (04/04/25 15:06) Echo 2d Mode Cardiac Dop (04/04/25 15:06) Carotid Duplx W Color Dop (04/04/25 15:06) Condition: Serious (04/04/25 15:06) Acetaminophen Tablet (Tylenol Tablet) (04/04/25 15:15) Sequential Compression Device (04/04/25 ) Nitroglycerin Sublingual (Ntrostat Subli (04/04/25 15:15) Morphine Sulfate Injection (04/04/25 15:15) Oxygen By Nasal Cannula (04/04/25 15:06) Stat Ekg For Chest Pain (04/04/25 15:06) Notify Md Of Changes From Base (04/04/25 15:06) Supervisor Tank Storage For 24 Hours (04/04/25 15:06) Emergency Dysrhythmia Protocol (04/04/25 15:06) Rhythm Strips Once Every Shift (04/04/25 15:06) * Neurology Consult (04/04/25 15:06) Aspirin Tablet (04/05/25 10:00) Atorvastatin (Lipitor) (04/05/25 22:00) Morphine Sulfate Injection (04/04/25 15:15) Brain Head Wo Contrast (04/05/25 07:00) Vital Signs Date Time Temp Pulse Resp B/P (MAP) Pulse Ox O2 Delivery O2 Flow Rate FiO2 04/04/25 15:24 81 04/04/25 13:20 81 04/04/25 12:55 98.0 88 15 101/72 97 98.0 Laboratory Tests Test 04/04/25 14:06 White Blood Count 5.6 10^3/uL (4.4-10.8) Medications Medications Dose Ordered Sig/Manjula Route Start Time Stop Time Status Last Admin Dose Admin Aspirin 162 mg ONCE ONCE PO 04/04/25 15:00 04/04/25 15:05 DC 04/04/25 15:32 162 MG Atorvastatin Calcium 40 mg ONCE ONCE PO 04/04/25 15:00 04/04/25 15:05 DC 04/04/25 15:32 40 MG Assessment/Plan Assessment/Plan # Notable Presyncope: recurrent dizziness x 3 days. sudden onset, started 2-3 days back, patient's family noted slurring speech, facial deviation, and dizziness without loss of consciousness prompted to bring the patient ER. patient complained transient left sided weakness in upper and lower limbs, physical examination unsupportive. # mild normocytic anemia: baseline around Hb 13-14, presented with 13.3, no active bleeding noted , follow up CBC close monitoring. Hemodynamically stable, afebrile, only on home aspirin 81 mg daily. # [id number] dehydration: Elevated BUN 25, creatinine around baseline, continue hydration. # Known Anxiety disorder: On buspirone 7.5 Daily, as needed hydroxyzine, in his older age avoid benzodiazepines. # Essential hypertension history: Enalapril 10 mg daily, hydrochlorothiazide 25 mg daily. target BP 140/90 or below, cardiac diet, liberal management. # Chronic insomnia: on temazepam 15 mg bedtime prn. continue. # Age related osteoarthritis: PT before discharge, on as needed Aleve/naproxen, we will try to avoid NSAIDs # Neuropathic pain /chronic low back pain: On gabapentin 100 mg daily, as needed cyclobenzaprine, continue # prior history of multiple UTIs: Microbiology did not show up any resistant bugs. , UA pending. As per patient frequent micturition, could be due to BPH as well. # History of prior recurrent renal stones # History of Parkinson's disease/ vascular dementia: Reconcile home Meds, we will talk to primary caregiver / family son/. # Known BPH: Typical symptoms, previously seen chronic bladder obstruction with mild urinary bladder wall thickening and prostatomegaly CT.: Look for urinary obstruction, if needed Beck's catheter # Surgical history of tonsillectomy # High-risk of delirium: Sleep-wake cycle, pain management, frequent reorientation and Delirium precautions. # Known HFpEF: Grade I diastolic dysfunction, last echo in 2016 LVEF of 55% , previously noted EKG shows junctional rhythm. repeat Echo. telemetry continue. PUD prophylaxis: protonix 40mg DVT prophylaxis: SCD/ brisk movement. Barriers to discharge: Medical diagnosis and managment in progress. Patient lives with family. Independent/need supportive device/wheelchair/person support for ADL To re-evaluated by PT and SW consult as needed. PCP: as per patient, PCP left area, looking for new PCP in the area. wellness program coordinator consult. Specialist Relevant To Admission: Neurology, Dr. Del Rio Case discussed with Dr. Batres. Code Status: Full Code. Care plan and discussion needed total 29 minutes bedside. Plan discussed with: Patient My Orders Orders - SAUL OZUNA RESIDENT Procedure Category Date Status Time Admit ADMIT 04/04/25 Transmitted 15:06 Allergies CUBA 04/04/25 In Process 15:06 Code Status CODE 04/04/25 Transmitted 15:06 Sodium Chloride 0.9% PHA 04/04/25 In Process 15:15 Temazepam (Restoril) PHA 04/04/25 In Process 15:15 Ondansetron Hcl PHA 04/04/25 In Process (Zofran) 15:15 Docusate Sodium PHA 04/04/25 In Process Capsule (Colace 15:15 Fall Risk Precautions CUBA 04/04/[address] 15:06 Complete Blood Count LAB 04/05/25 Verified 04:00 Comprehensive LAB 04/05/25 Verified Metabolic Panel 04:00 Npo (Nothing By DIET 04/04/25 Transmitted Mouth) Diet Dinner Pt Request For Service PT 04/04/25 Logged 15:06 * Swallow Request ST 04/04/25 Transmitted 15:06 Echo 2d Mode Cardiac US 04/04/25 Logged DOP 15:06 Carotid Duplx W Color US 04/04/25 Logged DOP 15:06 Condition: Serious CUBA 04/04/25 In Process 15:06 Acetaminophen Tablet PHA 04/04/25 In Process (Tylenol Tablet) 15:15 Sequential CUBA 04/04/25 In Process Compression Device Nitroglycerin PHA 04/04/25 In Process Sublingual (Ntrostat 15:15 Morphine Sulfate PHA 04/04/25 In Process Injection 15:15 Oxygen By Nasal RT 04/04/25 Transmitted Cannula 15:06 Stat Ekg For Chest [facility] 04/04/25 In Process Pain 15:06 Notify Md Of Changes [facility] 04/04/25 In Process From Base 15:06 Supervisor Tank Storage For [facility] 04/04/25 In Process 24 Hours 15:06 Emergency Dysrhythmia [facility] 04/04/25 In Process Protocol 15:06 Rhythm Strips Once [facility] 04/04/25 In Process Every Shift 15:06 * Neurology Consult CONS 04/04/25 Transmitted 15:06 Aspirin Tablet PHA 04/05/25 In Process 10:00 Atorvastatin (Lipitor) PHA 04/05/25 In Process 22:00 Morphine Sulfate PHA 04/04/25 In Process Injection 15:15 Brain Head Wo Contrast MRI 04/05/25 Logged 07:00 Date of Service: Apr 04, 2025 Billing Provider: ISAAC BATRES MD Common Visit Codes: 11200-HZCANMU INP/OBS CARE (HIGH) Secondary Visit Codes: [id number]-[id number] CARE PLAN 30 MINUTES SAUL OZUNA RESIDENT Apr 04, 2025 15:53
[2025-04-04 16:16] LABS: Alanine Aminotransferase 14.0 U/L (7-40); Alkaline Phosphatase 81.0 U/L (46-116); Total Protein 6.9 g/dL (5.7-8.2)
[2025-04-04 16:17] LABS: Albumin 4.5 g/dL (3.2-4.8)
[2025-04-04 16:18] LABS: Bilirubin, Total 1.7 mg/dL (0.2-1.0)
--- NOTE | 2025-04-04 16:28 | DVH ---
CLINICAL HISTORY: rule out carotid stenosis. TECHNIQUE: Long-scale, Color and Duplex Doppler imaging of the bilateral carotid systems was performed. COMPARISON: CT BRAIN on DOS: 10/11/23, CT HEAD WITHOUT CONTRAST on DOS: 05/25/23, CERVICAL WITHOUT CONTRAST on DOS: 11/09/21 Findings: Right Carotid system: There is mild plaque present in the right carotid system. Left Carotid system: There is mild plaque present in the left carotid system. The following flow velocities were obtained (cm/sec). Right Carotid System: ICA PSV: 46 cm/sec ICA PDV: 8 cm/sec ICA/CCA Ratio: 1 Left Carotid System: ICA PSV: 81 cm/sec ICA PDV: 26 cm/sec ICA/CCA Ratio: 1.4 The right and left common carotid and external carotid arteries are patent. There is antegrade flow in both vertebral arteries and external carotid arteries. IMPRESSION: LESS THAN 50% RIGHT ICA NARROWING. LESS THAN 50% LEFT ICA NARROWING. Estimation of carotid stenosis is based on velocity parameters that correlate the residual internal carotid diameter with that of the more distal vessel in accordance with the [place] Symptomatic Carotid Endarterectomy Trial (NASCET).
[2025-04-04 16:47] LABS: Bilirubin, Direct 0.6 mg/dL (<0.3)
[2025-04-04 16:59] LABS: Triglycerides 99 mg/dL (< 150)
[2025-04-04 17:01] LABS: Cholesterol 133 mg/dL (< 200); HDL Cholesterol 54 mg/dL (40-59)
[2025-04-04] MEDS: PANTOPRAZOLE 40 MG/10 ML VIAL INJ IV ONE (17:36)
[2025-04-04] MEDS: GABAPENTIN 100 MG CAP PO SCH (17:36)
[2025-04-04] MEDS: SODIUM CHLORIDE 0.9% 500 ML IV ONE (17:40)
[2025-04-04 18:18] LABS: COVID19 ANTIGEN SOFIA FIA NEGATIVE (NEGATIVE)
[2025-04-04 18:55] LABS: Urine Protein, UAD Negative (Negative)
[2025-04-04 19:11] VITALS: BP 142/81; PULSE 54; RESP 17; TEMP 97.9; O2SAT 98
[2025-04-04 21:00] VITALS: BP 141/81; PULSE 51; RESP 18; TEMP 98.3; O2SAT 97
--- NOTE | 2025-04-04 21:11 | DVHINCON2 ---
Date of service: Apr 04, [address] Cheng Reason for Consultation Acute stroke History of Present Illness Mr. Gibbs is a 69 years old right-handed gentleman with a history of anxiety, hypertension, the patient came to the hospital on 04/04/2025 with a chief complaint of altered mental status. At that time he is awake, oriented to person, place, good social skills, he said he came here because of noticed abnormal mentation and behavior I saw him on 01/19/2016 for fall/closed head injury According to the ER note, he presented to the emergency room on 04/04/2025 with altered mental status and slurry were out. His reported that he had acute confusion, dizziness, weakness, otherwise the patient did not have headache, focal weakness numbness, nausea, vomiting or other acute illness Emergency note also mentioned about dementia, more history is needed to confirm ER nose mentioned about Parkinson's disease, but I do not see evidence of tremor, bradykinesia, voice changes. [phone] no answer CBC, 04/04/2025: Unremarkable BMP 04/04/2025: Unremarkable TBI/AST/ALT/AP, 04/04/2025: 1.7/// HGB A1c, 04/04/2025: 502 TG/HDL/LDL/HDL, 04/04/25: 99/133/65/54 Carotid Doppler, 04/04/2025: LESS THAN 50% RIGHT ICA NARROWING. LESS THAN 50% LEFT ICA NARROWING. CT head, 01/18/16: No intracranial hemorrhage or skull fracture. CT head, 04/04/2025: No evidence of acute intracranial abnormality. Past Medical History Hypertension, diabetes, kidney stone, anxiety, dementia, Past Surgical History Vasectomy, tonsillectomy Family History: Cancer G8 FATHER, Onset:Unknown Family history: Coronary thrombosis G8 FATHER Family History Cancer, heart attack Social History He is a nonsmoker, no history of alcohol recreational substance abuse Allergies: Coded Allergies: NO KNOWN ALLERGIES (Unverified , 09/24/12) Home Meds Active Scripts Cyclobenzaprine Hcl (Cyclobenzaprine Hcl) 5 Mg Tab, 1 TAB PO TID for 15 Days, #45 TAB Prov:GALO GORDILLO MD 11/09/21 Naproxen Sodium (Aleve) 220 Mg Cap, 220 MG PO BID for 10 Days, #20 CAP Prov:GALO GORDILLO MD 11/09/21 Reported Medications Aspirin (Aspirin Ec Low Dose) 81 Mg Tab, #90 01/20/16 Temazepam (Temazepam) 15 Mg Cap, #10 01/20/16 Lorazepam (Lorazepam) 0.5 Mg Tab, #30 01/20/16 Gabapentin (Gabapentin) 100 Mg Cap, #90 01/20/16 Hydrochlorothiazide (Hydrochlorothiazide) 25 Mg Tab, #90 01/20/16 Enalapril Maleate (Enalapril Maleate) 10 Mg Tab, #90 01/20/16 Buspirone Hcl (Buspirone Hcl) 7.5 Mg Tab, #60 01/20/16 Current Medications Current Medications Medications (Trade) Dose Ordered Sig/Manjula Route PRN Reason Start Time Stop Time Status Last Admin Sodium Chloride 1,000 ml @ 60 mls/hr [id number] IV 04/04/25 15:15 Temazepam (Restoril) 15 mg QHSP PRN PO FOR INSOMNIA 04/04/25 15:15 Ondansetron HCl (Zofran) 4 mg Q4HP PRN IV NAUSEA / VOMITING 04/04/25 15:15 Docusate Sodium (Colace Capsule) 100 mg BIDPRN PRN PO FOR CONSTIPATION 04/04/25 15:15 Acetaminophen (Tylenol Tablet) 650 mg Q6HP PRN PO PAIN SCALE 1-3 OR TEMP>100.4 04/04/25 15:15 Morphine Sulfate 2 mg Q4HPRN PRN IV SEVERE PAIN (7-10 PAIN SCALE) 04/04/25 15:15 Nitroglycerin (Ntrostat Sublingual) 0.4 mg Q5MINP PRN SL FOR CHEST PAIN 04/04/25 15:15 Morphine Sulfate 2 mg Q30M PRN IV FOR CHEST PAIN 04/04/25 15:15 Aspirin 81 mg DAILY PO 04/05/25 10:00 Atorvastatin Calcium (Lipitor) 40 mg HS PO 04/05/25 22:00 Gabapentin (Neurontin Capsule) 100 mg DAILY PO 04/04/25 16:00 04/04/25 17:36 Buspirone HCl (Buspar Tablet) 7.5 mg DAILY PO 04/05/25 10:00 Pantoprazole Sodium (Protonix) 40 mg DAILY IV 04/05/25 10:00 Review of Systems Unobtainable Vital Signs Vital Signs Date Time Temp Pulse Resp B/P (MAP) Pulse Ox O2 Delivery O2 Flow Rate FiO2 04/04/25 19:11 97.9 54 17 142/81 (101) 98 97.9 Physical Exam GENERAL EXAM: General: the patient is well developed and nourished. No acute distress. HEENT: Normocephalic, neck is supple, no carotid bruits. No mass. RESPIRATORY: Normal respiratory effort with symmetrical lung expansion. Lungs clear to auscultation. CARDIOVASCULAR: Regular rate and rhythm with no murmurs. S1, S2. ABDOMEN: Soft, nontender, normal bowel sound NEUROLOGICAL: MENTAL STATUS: Awake and alert. Oriented to person, place SPEECH, LANGUAGE, HIGHER CORTICAL FUNCTION: no aphasia or dysathria. CRANIAL NERVES: #2: Intact visual ceballos to confrontation. The optic discs were sharp #3,4,6: Pupils are equal, round and reactive. EOMs full and conjugate. No nystagmus. #5: Facial sensation intact in all three divisions bilaterally. Mandibular strength intact. #7: Facial muscles symmetrical and strength intact. #8: Hearing grossly normal to voice. #9,10: Uvula and soft palate rise in the midline. Swallow and voice are normal. #11: Trapezius and sternomastoid strength intact bilaterally. #12: Tongue midline. No fasciculations or atrophy. SENSATION: Sensation to touch and pinprick is normal. MOTOR: Normal tone in the upper and lower extremity. Normal muscle bulk. No fasciculations. No abnormal movements or posturing. Muscle strength of the major groups in the upper extremities is 5/5. Muscle strength of the major groups in the lower extremities is 5/5. REFLEXES: Deep tendon reflexes are symmetrical. No pathological reflexes. CEREBELLAR/COORDINATION: Finger to nose is normal bilaterally. GAIT/STATION: deferred Labs/Diagnostic Data Labs Test 04/04/25 18:28 04/04/25 18:19 04/04/25 17:35 04/04/25 14:06 Range/Units Urine Color Yellow Yellow Urine Clarity Clear Clear Urine pH 5.5 5.0-9.0 Urine Specific [place] 1.027 1.001-1.035 Urine Protein Negative Negative Urine Ketones Negative Negative Urine Blood Negative Negative /uL Urine Nitrite Negative Negative Urine Bilirubin Negative Negative Urine Urobilinogen 2 H Negative mg/dL Urine Leukocyte Esterase Negative Negative /uL Urine RBC 1 0 - 3 /hpf Urine Microscopic WBC < 1 0-3 /HPF Urine Squamous Epithelial Cells Few <5 /hpf Urine Bacteria None seen None Seen /hpf Urine Mucus Few None Seen Urine Glucose Normal Normal mg/dL Troponin I High Sensitivity 3 L </=54 ng/L Influenza Type A Antigen Negative Negative Influenza Type B Antigen Negative Negative SARS-CoV-2 Antigen (Rapid) Negative NEGATIVE White Blood Count 5.6 4.4-10.8 10^3/uL Red Blood Count 4.30 L 4.5-5.90 10^6/uL Hemoglobin 13.3 L 13.5-17.5 g/dL Hematocrit 38.0 L 41.0-53.0 % Mean Corpuscular Volume 88.5 80.0-100.0 fL Mean Corpuscular Hemoglobin 30.9 28.0-32.0 pg Mean Corpuscular Hemoglobin Concent 34.9 32.0-36.0 g/dL Red Cell Distribution Width 13.4 11.8-14.3 % Platelet Count 187 140-450 10^3/uL Mean Platelet Volume 7.6 6.9-10.8 fL Neutrophils (%) (Auto) 66.7 37.0-80.0 % Lymphocytes (%) (Auto) 17.2 10.0-50.0 % Monocytes (%) (Auto) 8.2 0.0-12.0 % Eosinophils (%) (Auto) 5.7 0.0-7.0 % Basophils (%) (Auto) 2.2 H 0.0-2.0 % Neutrophils # (Auto) 3.8 1.6-8.6 10 ^3/uL Lymphocytes # (Auto) 1.0 0.4-5.4 10 ^3/uL Monocytes # (Auto) 0.5 0-1.3 10 ^3/uL Eosinophils # (Auto) 0.3 0-0.8 10 ^3/uL Basophils # (Auto) 0.1 0-0.2 10 ^3/uL Nucleated Red Blood Cells 0.0 % Sodium Level 141 136-145 mmol/L Potassium Level 4.1 3.5-5.1 mmol/L Chloride Level 103 98-107 mmol/L Carbon Dioxide Level 28 20-31 mmol/L Anion Gap 10 5-15 Blood Urea Nitrogen 25 H 9-23 mg/dL Creatinine 0.90 0.700-1.30 mg/dL Glomerular Filtration Rate Calc 91 >90 mL/min BUN/Creatinine Ratio 27.8 H 10.0-20.0 Serum Glucose 106 74-106 mg/dL Hemoglobin A1c 5.2 <5.7 % A1C Calcium Level 9.3 8.7-10.4 mg/dL Total Bilirubin 1.7 H 0.2-1.0 mg/dL Direct Bilirubin 0.6 H <0.3 mg/dL Aspartate Amino Transferase (AST) 27 13-40 U/L Alanine Aminotransferase (ALT) 14 7-40 U/L Alkaline Phosphatase 81 46-116 U/L B-Type Natriuretic Peptide 76.93 0-100 pg/mL Total Protein 6.9 5.7-8.2 g/dL Albumin 4.5 3.2-4.8 g/dL Triglycerides Level 99 < 150 mg/dL Cholesterol Level 133 < 200 mg/dL LDL Cholesterol 65 < 100 mg/dL HDL Cholesterol 54 40-59 mg/dL Assessment Altered mental status, slurry words Metabolic encephalopathy Partial company seizure Stroke Reports dementia Reported Parkinson's disease, no convincing evidence noticed on this consultation Plan/Recommendation Monitoring Supportive treatment Telemetry Vitamin B12, folic acid, TSH EEG Echocardiogram MR head Aspirin 81 mg daily (home medication) Lipitor 20 mg daily Up to chair Physical therapy More recommendation per clinical course Prognosis poor Times is 55 minutes This medical document was created using an electronic medical record system with [employer] dictation system. Although this document has been carefully reviewed, there may still be some phonetic and typographical errors. These areas are purely typographical due to imperfections of the software programs, and do not reflect any compromise in the patient's medical care. Plan discussed with: Other ALEX WARD MD Apr 04, 2025 21:11
[2025-04-04] MEDS ORDERED: LORazepam 2MG/ML-1ML VIAL IV PRN (21:45)
[2025-04-04] MEDS: ATORVASTATIN 20 MG TAB PO SCH (22:00)
[2025-04-04 22:09] LABS: Free T4 (Free Thyroxine) 0.9 ng/dL (0.89-1.76)
[2025-04-05] VITALS (10 sets, daily range): BP systolic 122–157; BP diastolic 48–97; PULSE 49–83; RESP 16–18; TEMP 97.7–98.1; O2SAT 93–96
[2025-04-05 06:28] LABS: Hematocrit 37.4 % (41.0-53.0); Hemoglobin 13.2 g/dL (13.5-17.5); Mean Corpuscular Hemoglobin 31.2 pg (28.0-32.0); Mean Corpuscular Volume 88.4 fL (80.0-100.0); Nucleated Red Blood Cells % 0.1 %
[2025-04-05 07:08] LABS: Alanine Aminotransferase 30 U/L (7-40); Albumin 4.1 g/dL (3.2-4.8); Alkaline Phosphatase 71 U/L (46-116); Anion Gap 11 (5-15); Calcium 9.2 mg/dL (8.7-10.4); Carbon Dioxide 27 mmol/L (20-31); Chloride 106 mmol/L (98-107); Glucose 82 mg/dL (74-106); Potassium 4.1 mmol/L (3.5-5.1); Sodium 144 mmol/L (136-145)
[2025-04-05 07:09] LABS: BUN/Creatinine Ratio 22.4 (10.0-20.0); Blood Urea Nitrogen 17 mg/dL (9-23); Total Protein 6.6 g/dL (5.7-8.2)
[2025-04-05 07:12] LABS: Bilirubin, Total 1.6 mg/dL (0.2-1.0)
--- NOTE | 2025-04-05 08:58 | DVHPN2 ---
Progress Note - Dictate Date Seen: Apr 05, 2025 Medical Necessity Reason Pt with a Central, PICC or Fol: No Subjective Mr. Gibbs is a 69 years old right-handed gentleman with a history of anxiety, hypertension, the patient came to the hospital on 04/04/2025 with a chief complaint of altered mental status. I saw him on 01/19/2016 for fall/closed head injury I have seen and examined the patient, I have talked to his nurse, family not available for the history, he is awake, oriented to person place, good social skills, he does not remember talking to me yesterday ER nose mentioned about Parkinson's disease, he is not on Parkinson's medication, but I did not see tremor, bradykinesia, voice changes on 04/04/2025 and 04/05/2025. [phone] no answer CBC, 04/04/2025: Unremarkable BMP 04/04/2025: Unremarkable TBI/AST/ALT/AP, 04/04/2025: 1.7//14/81 HGB A1c, 04/04/2025: 502 TG/HDL/LDL/HDL, 04/04/25: 99/133/65/54 Vitamin B12, 04/04/2025: 467 Folic acid, 04/04/2025: 14.24 TSH, 04/04/2025: 1.35 FT4, 04/04/2025: 0.9 Carotid Doppler, 04/04/2025: LESS THAN 50% RIGHT ICA NARROWING. LESS THAN 50% LEFT ICA NARROWING. CT head, 01/18/16: No intracranial hemorrhage or skull fracture. CT head, 04/04/2025: No evidence of acute intracranial abnormality. vital signs Vital Sign Date Time Temp Pulse Resp B/P (MAP) Pulse Ox O2 Delivery O2 Flow Rate FiO2 04/05/25 08:38 97.7 57 18 137/97 (110) 94 97.7 04/05/25 00:29 Room Air* 0 21 Total Intake and Output 04/04/25 04/04/25 04/05/25 15:00 23:00 07:00 Intake Total 500 ml 210 ml Balance 500 ml 210 ml medications Current Medications Medications Dose Ordered Sig/Manjula Route Start Time Stop Time Status Last Admin Dose Admin Sodium Chloride 1,000 ml @ 60 mls/hr [id number] IV 04/04/25 15:15 04/04/25 15:15 Temazepam 15 mg QHSP PRN PO 04/04/25 15:15 Ondansetron HCl 4 mg Q4HP PRN IV 04/04/25 15:15 Docusate Sodium 100 mg BIDPRN PRN PO 04/04/25 15:15 Acetaminophen 650 mg Q6HP PRN PO 04/04/25 15:15 Morphine Sulfate 2 mg Q4HPRN PRN IV 04/04/25 15:15 Nitroglycerin 0.4 mg Q5MINP PRN SL 04/04/25 15:15 Morphine Sulfate 2 mg Q30M PRN IV 04/04/25 15:15 Aspirin 81 mg DAILY PO 04/05/25 10:00 Gabapentin 100 mg DAILY PO 04/04/25 16:00 04/04/25 17:36 Buspirone HCl 7.5 mg DAILY PO 04/05/25 10:00 Pantoprazole Sodium 40 mg DAILY IV 04/05/25 10:00 Atorvastatin Calcium 20 mg HS PO 04/04/25 21:45 04/04/25 22:28 Lorazepam 1 mg ONCE PRN IV 04/04/25 21:45 objective General: the patient is well developed and nourished. No acute distress. MENTAL STATUS: Subjective SPEECH, LANGUAGE, HIGHER CORTICAL FUNCTION: no aphasia or dysathria. CRANIAL NERVES: Pupils are equal, round and reactive. EOMs full and conjugate. No nystagmus. Facial sensation intact in all three divisions bilaterally. Mandibular strength intact. Facial muscles symmetrical and strength intact. Tongue midline. No fasciculations or atrophy. SENSATION: Sensation to touch and pinprick is normal. MOTOR: Normal tone in the upper and lower extremity. Normal muscle bulk. No fasciculations. No abnormal movements or posturing. Muscle strength of the major groups in the extremities is 5/5. REFLEXES: Deep tendon reflexes are symmetrical. No pathological reflexes. CEREBELLAR/COORDINATION: Finger to nose is normal bilaterally. GAIT/STATION: deferred laboratory and microbiology Laboratory Tests 04/05/25 05:14 Test 04/05/25 05:14 Range/Units Serum Glucose 82 74-106 mg/dL Problem List Altered mental status, slurry words Metabolic encephalopathy Partial company seizure Stroke Reported dementia Reported Parkinson's disease, no convincing evidence noticed Assessment/Plan Monitoring Supportive treatment Telemetry EEG Echocardiogram MRI head Aspirin 81 mg daily (home medication) Lipitor 20 mg daily Up to chair Physical therapy More recommendation per clinical course This medical document was created using an electronic medical record system with [employer] dictation system. Although this document has been carefully reviewed, there may still be some phonetic and typographical errors. These areas are purely typographical due to imperfections of the software programs, and do not reflect any compromise in the patient's medical care. Prognosis poor Plan discussed with: Other Total Time (mins): 35 ALEX WARD MD Apr 05, 2025 08:58
[2025-04-05] MEDS: PANTOPRAZOLE 40 MG/10 ML VIAL INJ IV SCH (09:52)
--- NOTE | 2025-04-05 10:35 | DVHPN2 ---
Reviewed: H&P Changes from previous H/P or p: No Changes General: Per HPI Eyes: No Pain, No Vision change, No Conjunctivae inflammation, No Eyelid inflammation, No Other, No Redness ENT: No Ear pain, No Ear discharge, No Nose pain, No Nose discharge, No Nose congestion, No Mouth pain, No Mouth swelling, No Throat pain, No Throat swelling, No Other Cardiovascular: No Chest Pain, No Palpitations, No Orthopnea, No Paroxysmal Noc. Dyspnea, No Edema, No Lt Headedness, No Other Respiratory: No Cough, No Dry, No Shortness of breath, No SOB with excertion, No Wheezing, No Hemoptysis, No Pleuritic Pain, No Sputum, No Other Gastrointestinal: No Nausea, No Vomiting, No Abdominal Pain, No Diarrhea, No Constipation, No Melena, No Hematochezia, No Other Genitourinary: No Dysuria, No Frequency, No Incontinence, No Hematuria, No Retention, No Other Musculoskeletal: back pain Skin: No Rash, No Lesions, No Jaundice, No Bruising, No Other Objective Vitals Vital Signs Date Time Temp Pulse Resp B/P (MAP) Pulse Ox O2 Delivery O2 Flow Rate FiO2 04/05/25 08:38 97.7 57 18 137/97 (110) 94 97.7 04/05/25 08:00 Room Air* 0 21 Intake/Output Intake and Output 04/05/25 07:00 Intake Total 710 ml Balance 710 ml Intake Oral 210 ml IV Total 500 ml # Voids 2 Exam GEN: Healthy appearing, well-developed, NAD. HEENT: NC/AT; MMM. CV: RRR, no m/r/g. LUNGS: CTAB, no w/r/c. ABD: Soft, NT/ND, NBS, no masses or organomegaly. EXT: skin Warm, well perfused. no rashes. No clubbing, cyanosis, or edema. NEURO: Ambulating with no limitations. No focal deficits. Medications Current Medications Medications Dose Ordered Sig/Manjula Route Start Time Stop Time Status Last Admin Dose Admin Sodium Chloride 1,000 ml @ 60 mls/hr [id number] IV 04/04/25 15:15 04/05/25 09:50 60 MLS/HR Temazepam 15 mg QHSP PRN PO 04/04/25 15:15 Ondansetron HCl 4 mg Q4HP PRN IV 04/04/25 15:15 Docusate Sodium 100 mg BIDPRN PRN PO 04/04/25 15:15 Acetaminophen 650 mg Q6HP PRN PO 04/04/25 15:15 Morphine Sulfate 2 mg Q4HPRN PRN IV 04/04/25 15:15 Nitroglycerin 0.4 mg Q5MINP PRN SL 04/04/25 15:15 Morphine Sulfate 2 mg Q30M PRN IV 04/04/25 15:15 Aspirin 81 mg DAILY PO 04/05/25 10:00 04/05/25 09:52 81 MG Gabapentin 100 mg DAILY PO 04/04/25 16:00 04/05/25 09:51 100 MG Buspirone HCl 7.5 mg DAILY PO 04/05/25 10:00 04/05/25 09:51 7.5 MG Pantoprazole Sodium 40 mg DAILY IV 04/05/25 10:00 04/05/25 09:52 40 MG Atorvastatin Calcium 20 mg HS PO 04/04/25 21:45 04/04/25 22:28 20 MG Lorazepam 1 mg ONCE PRN IV 04/04/25 21:45 Laboratory Results Laboratory Tests 04/05/25 05:14 Chemistry Test 04/04/25 14:06 04/05/25 05:14 Albumin 4.5 g/dL (3.2-4.8) 4.1 g/dL (3.2-4.8) Calcium Level 9.3 mg/dL (8.7-10.4) 9.2 mg/dL (8.7-10.4) Total Protein 6.9 g/dL (5.7-8.2) 6.6 g/dL (5.7-8.2) Lipid panel Test 04/04/25 14:06 Cholesterol Level 133 mg/dL (< 200) HDL Cholesterol 54 mg/dL (40-59) Triglycerides Level 99 mg/dL (< 150) Cardiac Markers Test 04/04/25 14:06 B-Type Natriuretic Peptide 76.93 pg/mL (0-100) LFT Test 04/04/25 14:06 04/05/25 05:14 Alanine Aminotransferase (ALT) 14 U/L (7-40) 30 U/L (7-40) Alkaline Phosphatase 81 U/L (46-116) 71 U/L (46-116) Aspartate Amino Transferase (AST) 27 U/L (13-40) 26 U/L (13-40) Direct Bilirubin 0.6 mg/dL (<0.3) H Total Bilirubin 1.7 mg/dL (0.2-1.0) H 1.6 mg/dL (0.2-1.0) H HgA1c, TSH Test 04/04/25 14:06 04/04/25 18:19 Hemoglobin A1c 5.2 % A1C (<5.7) Thyroid Stimulating Hormone (TSH) 1.35 uIU/mL (0.55-4.78) Urinalysis Test 04/04/25 18:28 Urine Color Yellow (Yellow) Urine Clarity Clear (Clear) Urine pH 5.5 (5.0-9.0) Urine Specific [place] 1.027 (1.001-1.035) Urine Protein Negative (Negative) Urine Ketones Negative (Negative) Urine Blood Negative /uL (Negative) Urine Nitrite Negative (Negative) Urine Bilirubin Negative (Negative) Urine Urobilinogen 2 mg/dL (Negative) H Urine Leukocyte Esterase Negative /uL (Negative) Urine RBC 1 /hpf (0 - 3) Urine Microscopic WBC < 1 /HPF (0-3) Urine Squamous Epithelial Cells Few /hpf (<5) Urine Bacteria None seen /hpf (None Seen) Urine Mucus Few (None Seen) Urine Glucose Normal mg/dL (Normal) Labs and/or images reviewed: Labs reviewed by me, Image(s) reviewed by me Assessment/Plan Assessment/Plan 69-year-old male with a history of dementia, hypertension, and Parkinsons disease who presents with acute altered mental status and slurred speech Complicated with 3 days earlier onset of sudden dizziness.. Per his , symptoms began suddenly with confusion, dizziness, and generalized weakness, followed by word slurring. He denies headache, loss of consciousness, Fall, sick contact, focal weakness, paralysis, nausea, vomiting, fever, chest pain, shortness of breath, diarrhea, dysuria, hematuria, or palpitations. Due to persistence of symptoms, he was brought to the ED by his . On arrival, he is alert and oriented, vitals stable, speaking clearly, and in no apparent distress. 04/05: Patient presented with ALOC, slurred speech with dizziness. Head CT on admit without any acute hemorrhagic stroke we will concerning signs. Neurology is consulted. Planning for EEG and MRI. Echocardiogram?. We will check orthostatics, keep on tele, PT consulted. R/o Stroke Possible metabolic encephalopathy Dementia, advancing? , possible # Notable Presyncope: recurrent dizziness x 3 days. sudden onset, started 2-3 days back, patient's family noted slurring speech, facial deviation, and dizziness without loss of consciousness prompted to bring the patient ER. patient complained transient left sided weakness in upper and lower limbs, physical examination unsupportive. # mild normocytic anemia: baseline around Hb 13-14, presented with 13.3, no active bleeding noted , follow up CBC close monitoring. Hemodynamically stable, afebrile, only on home aspirin 81 mg daily. # [id number] dehydration: Elevated BUN 25, creatinine around baseline, continue hydration. # Known Anxiety disorder: On buspirone 7.5 Daily, as needed hydroxyzine, in his older age avoid benzodiazepines. # Essential hypertension history: Enalapril 10 mg daily, hydrochlorothiazide 25 mg daily. target BP 140/90 or below, cardiac diet, liberal management. # Chronic insomnia: on temazepam 15 mg bedtime prn. continue. # Age related osteoarthritis: PT before discharge, on as needed Aleve/naproxen, we will try to avoid NSAIDs # Neuropathic pain /chronic low back pain: On gabapentin 100 mg daily, as needed cyclobenzaprine, continue # prior history of multiple UTIs: Microbiology did not show up any resistant bugs. , UA pending. As per patient frequent micturition, could be due to BPH as well. # History of prior recurrent renal stones # History of Parkinson's disease/ vascular dementia: Reconcile home Meds, we will talk to primary caregiver / family son/. # Known BPH: Typical symptoms, previously seen chronic bladder obstruction with mild urinary bladder wall thickening and prostatomegaly CT.: Look for urinary obstruction, if needed Beck's catheter # Surgical history of tonsillectomy # High-risk of delirium: Sleep-wake cycle, pain management, frequent reorientation and Delirium precautions. # Known HFpEF: Grade I diastolic dysfunction, last echo in 2016 LVEF of 55% , previously noted EKG shows junctional rhythm. repeat Echo. telemetry continue. Plan: Enalapril 10 mg daily, buspirone 7.5 Daily hydrochlorothiazide 25 mg daily aspirin 81 mg daily. avoid temazepam 15 mg bedtime prn.- benzo in elderly not recommendded gabapentin 100 mg daily, as needed cyclobenzaprine, Monitoring Supportive treatment Telemetry EEG Echocardiogram MR head Aspirin 81 mg daily (home medication) Lipitor 20 mg daily Up to chair Physical therapy PUD prophylaxis: protonix 40mg DVT prophylaxis: SCD/ brisk movement. Plan discussed with: Patient Date of Service: Apr 05, 2025 Billing Provider: KRISTINA ZEPEDA MD Common Visit Codes: [id number] INP/OBS CARE(HIGH) KRISTINA ZEPEDA MD Apr 05, 2025 10:35
--- NOTE | 2025-04-05 13:33 | DVH ---
PROCEDURE: MRI BRAIN HEAD WO CONTRAST INDICATION: rule out ischemic stroke. EXAM DATE: 04/05/2025 12:16 PM COMPARISON: CT BRAIN on DOS: 10/11/23, CT HEAD WITHOUT CONTRAST on DOS: 05/25/23, HEAD WITHOUT CONTRAST on DOS: 11/09/21, HEAD WITHOUT CONTRAST on DOS: 03/07/19 TECHNIQUE: MRI of the brain without intravenous contrast. FINDINGS: Diffusion weighted images of the brain demonstrate no evidence of acute infarction. There is no evidence of acute intracranial hemorrhage, extra-axial collection, mass effect, midline shift, herniation or hydrocephalus. The ventricles, sulci and cisterns appear age appropriate. The signal intensities of the brain parenchyma are within normal limits. Moderate generalized cerebral volume loss with scattered foci of increased T2/FLAIR signal in the subcortical, deep, and periventricular white matter of both cerebral hemispheres compatible with mild chronic small vessel ischemia. The major vascular flow voids are present. The visualized paranasal sinuses and mastoid air cells are clear. The surrounding soft tissues and osseous structures are unremarkable. IMPRESSION: No evidence of acute infarction, intracranial hemorrhage, mass effect or hydrocephalus.
[2025-04-05] MEDS ORDERED: hydrALAZINE HCL 20 MG/ML VL IV PRN (17:30)
[2025-04-05] MEDS: ACETAMINOPHEN 325 MG TAB PO PRN (17:51)
[2025-04-05] MEDS ORDERED: ATORVASTATIN 20 MG TAB PO SCH (22:00)
[2025-04-06] VITALS (7 sets, daily range): BP systolic 134–158; BP diastolic 75–90; PULSE 53–74; RESP 15–17; TEMP 36.4; O2SAT 95–96
--- NOTE | 2025-04-06 06:42 | ECG ---
[facility] Test Date: 2025-04-04 Test Time: 13:20:50 Pat Name: TC PRATT Department: Room: 0220T B Gender: M External Auditor: RE : 1955 Requested By: GALO GORDILLO Order Number: [id number] Reading MD: Gurwinder De Souza Measurements Intervals [place] Rate: 81 P: 18 PA: 164 QRS: -41 QRSD: 106 T: 47 QT: 381 QTc: 443 Interpretive Statements Sinus rhythm Inferior infarct, old Probable anterior infarct, old Electronically Signed On 04-06-2025 15:44:32 PST by Gurwinder De Souza Please click the below link to view image of tracing.
--- NOTE | 2025-04-06 10:13 | DVHDS2 ---
Discharge Summary Date of Admission Apr 04, 2025 at 15:06 Date of Discharge: Apr 06, 2025 Labs/Diagnostic Data: Laboratory Results Test 04/05/25 05:14 04/04/25 18:28 04/04/25 18:19 04/04/25 17:35 White Blood Count 4.5 10^3/uL (4.4-10.8) Red Blood Count 4.24 10^6/uL (4.5-5.90) Hemoglobin 13.2 g/dL (13.5-17.5) Hematocrit 37.4 % (41.0-53.0) Mean Corpuscular Volume 88.4 fL (80.0-100.0) Mean Corpuscular Hemoglobin 31.2 pg (28.0-32.0) Mean Corpuscular Hemoglobin Concent 35.3 g/dL (32.0-36.0) Red Cell Distribution Width 13.6 % (11.8-14.3) Platelet Count 149 10^3/uL (140-450) Mean Platelet Volume 7.7 fL (6.9-10.8) Neutrophils (%) (Auto) 55.9 % (37.0-80.0) Lymphocytes (%) (Auto) 24.8 % (10.0-50.0) Monocytes (%) (Auto) 10.0 % (0.0-12.0) Eosinophils (%) (Auto) 7.5 % (0.0-7.0) Basophils (%) (Auto) 1.8 % (0.0-2.0) Neutrophils # (Auto) 2.5 10 ^3/uL (1.6-8.6) Lymphocytes # (Auto) 1.1 10 ^3/uL (0.4-5.4) Monocytes # (Auto) 0.5 10 ^3/uL (0-1.3) Eosinophils # (Auto) 0.3 10 ^3/uL (0-0.8) Basophils # (Auto) 0.1 10 ^3/uL (0-0.2) Nucleated Red Blood Cells 0.1 % Sodium Level 144 mmol/L (136-145) Potassium Level 4.1 mmol/L (3.5-5.1) Chloride Level 106 mmol/L (98-107) Carbon Dioxide Level 27 mmol/L (20-31) Anion Gap 11 (5-15) Blood Urea Nitrogen 17 mg/dL (9-23) Creatinine 0.76 mg/dL (0.700-1.30) Glomerular Filtration Rate Calc 96 mL/min (>90) BUN/Creatinine Ratio 22.4 (10.0-20.0) Serum Glucose 82 mg/dL (74-106) Calcium Level 9.2 mg/dL (8.7-10.4) Total Bilirubin 1.6 mg/dL (0.2-1.0) Aspartate Amino Transferase (AST) 26 U/L (13-40) Alanine Aminotransferase (ALT) 30 U/L (7-40) Alkaline Phosphatase 71 U/L (46-116) Total Protein 6.6 g/dL (5.7-8.2) Albumin 4.1 g/dL (3.2-4.8) Urine Color Yellow (Yellow) Urine Clarity Clear (Clear) Urine pH 5.5 (5.0-9.0) Urine Specific [place] 1.027 (1.001-1.035) Urine Protein Negative (Negative) Urine Ketones Negative (Negative) Urine Blood Negative /uL (Negative) Urine Nitrite Negative (Negative) Urine Bilirubin Negative (Negative) Urine Urobilinogen 2 mg/dL (Negative) Urine Leukocyte Esterase Negative /uL (Negative) Urine RBC 1 /hpf (0 - 3) Urine Microscopic WBC < 1 /HPF (0-3) Urine Squamous Epithelial Cells Few /hpf (<5) Urine Bacteria None seen /hpf (None Seen) Urine Mucus Few (None Seen) Urine Glucose Normal mg/dL (Normal) Troponin I High Sensitivity 3 ng/L (</=54) Vitamin B12 Level 467 pg/mL (211-911) Folic Acid 14.24 ng/mL (>5.38) Thyroid Stimulating Hormone (TSH) 1.35 uIU/mL (0.55-4.78) Free Thyroxine (T4) Calculated 0.90 ng/dL (0.89-1.76) Influenza Type A Antigen Negative (Negative) Influenza Type B Antigen Negative (Negative) SARS-CoV-2 Antigen (Rapid) Negative (NEGATIVE) Test 04/04/25 14:06 Hemoglobin A1c 5.2 % A1C (<5.7) Direct Bilirubin 0.6 mg/dL (<0.3) B-Type Natriuretic Peptide 76.93 pg/mL (0-100) Triglycerides Level 99 mg/dL (< 150) Cholesterol Level 133 mg/dL (< 200) LDL Cholesterol 65 mg/dL (< 100) HDL Cholesterol 54 mg/dL (40-59) Other Laboratory Tests 04/05/25 05:14 Brief Hx & Hospital Course: 69-year-old male with a history of dementia, hypertension, and Parkinsons disease who presents with acute altered mental status and slurred speech Complicated with 3 days earlier onset of sudden dizziness.. Per his , symptoms began suddenly with confusion, dizziness, and generalized weakness, followed by word slurring. He denies headache, loss of consciousness, Fall, sick contact, focal weakness, paralysis, nausea, vomiting, fever, chest pain, shortness of breath, diarrhea, dysuria, hematuria, or palpitations. Due to persistence of symptoms, he was brought to the ED by his . On arrival, he is alert and oriented, vitals stable, speaking clearly, and in no apparent distress. 04/05: Patient presented with ALOC, slurred speech with dizziness. Head CT on admit without any acute hemorrhagic stroke we will concerning signs. Neurology is consulted. Planning for EEG and MRI. Echocardiogram?. We will check orthostatics, keep on tele, PT consulted. 04/06: Patient remains asymptomatic, has been watched for 48 hours. No focal neurological deficits found. CT head negative, MRI brain was done yesterday was also negative for any acute infarcts.. We are unable to rule out TIA and remains possible. We will discuss plan with Neurology, patient will likely need to go home with aspirin 81 daily, Lipitor 40 daily, and continue other home medications. Patient to close follow up with PCP to review echocardiogram and to review discharge. Continue other home medications. DC clinic 1 week. Diagnosis: tia, possible ruled out Stroke Possible metabolic encephalopathy Dementia, advancing? , possible Presyncope Normocytic anemia Dehydration Intravascular volume depletion History of anxiety disorder Essential hypertension Chronic insomnia Age-related osteoarthritis Chronic neuropathic pain Chronic lower back pain History multiple UTI History of recurrent renal stones nephrolithiasis Parkinson's ruled out Vascular dementia likely History of BPH History surgical tonsillectomy HFpEF Plan: -Continue home medications -Take aspirin 81 daily, continue -Stopped Lipitor, instead use Crestor 20 mg daily,, also take [id number] Co Q10 supplement daily. -Stopped use of lorazepam, temazepam,, Flexeril. These medications can cause delirium. Medications to be reviewed by PCP. -Follow up with PCP to review discharge Condition at Discharge: Fair Final Diagnosis/Problems List tia, possible ruled out Stroke Possible metabolic encephalopathy Dementia, advancing? , possible Presyncope Normocytic anemia Dehydration Intravascular volume depletion History of anxiety disorder Essential hypertension Chronic insomnia Age-related osteoarthritis Chronic neuropathic pain Chronic lower back pain History multiple UTI History of recurrent renal stones nephrolithiasis Parkinson's ruled out Vascular dementia likely History of BPH History surgical tonsillectomy HFpEF Discharge Disposition: Home Discharge Instruct/Medications Scheduled Cyclobenzaprine Hcl (Cyclobenzaprine Hcl), 1 TAB PO TID Naproxen Sodium (Aleve), 220 MG PO BID Miscellaneous Medications Aspirin (Aspirin Ec Low Dose), (Reported) Buspirone Hcl (Buspirone Hcl), (Reported) Enalapril Maleate (Enalapril Maleate), (Reported) Gabapentin (Gabapentin), (Reported) Hydrochlorothiazide (Hydrochlorothiazide), (Reported) Lorazepam (Lorazepam), (Reported) Temazepam (Temazepam), (Reported) Discharge Statement: "Patient was advised to return to the ER or call 911 if any headaches, dizziness, shortness of breath, chest pain, abdominal pain, bleeding, fevers, or worsening of medical condition. Patient was counseled about treatment plan, medications, possible side effects, patientverbalized understanding. All questions were answered to the best of my ability. This discharge took greater then 30 minutes in planning, reviewing documentation, counseling the patient, and discussing with other team members." ASSESSMENT ASSESSMENT Assessment Date of Service: Apr 06, 2025 Billing Provider: KRISTINA ZEPEDA MD Common Visit Codes: 17240-OJR/OBS DISCH DAY >30min KRISTINA ZEPEDA MD Apr 06, 2025 10:13
[2025-04-06] MEDS ORDERED: ROSU20TA14 PO (12:13)
--- NOTE | 2025-04-06 14:53 | DVHSR ---
APPROVED REPORT EXAM: Two-dimensional and M-mode echocardiogram with Doppler and color Doppler. Blood Pressure: 139/83 mmHg INDICATION rule out structural heart disease acute RISK FACTORS Height: 73, Weight: 154 DIMENSIONS LVDd 4.7 (3.8-5.7cm) LA (2D) 4.6 (1.9-4.0cm) Aortic Root 4.1 (2.0-3.7cm) LVDs 3.9 (2.5-4.0cm) LA (MM) (1.9-4.0cm) Aortic Cusp Exc 1.8 (1.5-2.0cm) EF (%) 54.0 (55-70%) Rt. Atrium 3.8 (1.9-4.0cm) Asc. Aorta cm IVSd 1.0 (0.7-1.1cm) RV (D) (1.8-2.4cm) PWd 1.0 (0.7-1.1cm) Mitral Valve Mitral Mitral Stenosis E wave 0.69m/s MV Mean GR. mmHg A wave 0.79m/s MV Peak GR. mmHg E/A ratio 0.9 2D MVA cm2 DECEL Time 368ms PRESS 1/2 Time ms Aortic Valve Aortic Valve Aortic Stenosis V1 1.25m/s AO Mean GR. 6mmHg V2 1.54m/s AO Peak GR. 11mmHg LVOT Diameter 2.8 (1.8-2.4cm) Doppler JOANN 5.00cm2 AI P 1/2 Time 790.82ms Tricuspid Valve TR Velocity 2.22m/s RVSP 23mmHg Conclusion Sinus rhythm. Aortic root enlargement with left atrial enlargement. There is aortic root calcification. The annulus of the aortic valve appears to have moderate calcification. Sclerosis of the aortic valve noted. Left ventricular function is preserved. EF is 55-60% with normal RV function. There is moderate aortic insufficiency. Moderate tricuspid regurgitation. No pericardial effusion masses or vegetations.
--- NOTE | 2025-04-06 15:19 | DVHEEG2 ---
Neurology EEG Procedural Note Procedural Note EXAM DATE: 04/05/25 REFERRING DOCTOR: Dr. Ward TECHNIQUE: Eighteen channels of EEG, 2 channels of EOG, and 1 channel of EKG were recorded using the International 10/20 system. CLINICAL DATA: The patient was referred for an EEG evaluation for the evidence of seizure disorder. MEDICATIONS: See the chart BACKGROUND ACTIVITY: The record showed diffuse moderate amount of low to medium voltage polymorphic delta and theta activity over both hemispheres, that was reactive to external stimuli ACTIVATION: Hyperventilation: Not done Photic Stimulation: No photic convulsive response Sleep: Not seen IMPRESSION: This is a moderately abnormal EEG, this EEG seen in moderate cerebral dysfunction due to metabolic/hypoxic encephalopathy or medication effects, please correlate clinically The EKG channel showed a regular heart rate of 54/minute[place] [address] ALEX WARD MD Apr 06, 2025 15:19
== END 2025-04-06 14:55 | disposition home or self-care (01) | DRG 69 ==
LOC: ER 12:53 → OVERFLOW 15:06 → TELE-CENTR 19:11
PROVIDERS: ADMIT Student in an Organized Health Care Education/Training Program; ATTEND Student in an Organized Health Care Education/Training Program
DX: G45.9 Transient cerebral ischemic attack, unspecified (principal); G93.41 Metabolic encephalopathy; E86.0 Dehydration; I50.32 Chronic diastolic (congestive) heart failure; F01.518 Vascular dementia, unspecified severity, with other behavioral disturbance; F01.54 Vascular dementia, unspecified severity, with anxiety; R56.9 Unspecified convulsions; E11.9 Type 2 diabetes mellitus without complications; D64.9 Anemia, unspecified; I11.0 Hypertensive heart disease with heart failure; G89.29 Other chronic pain; F51.04 Psychophysiologic insomnia; N40.1 Benign prostatic hyperplasia with lower urinary tract symptoms; Z79.899 Other long term (current) drug therapy; Z79.82 Long term (current) use of aspirin; Z87.442 Personal history of urinary calculi; Z82.49 Family history of ischemic heart disease and other diseases of the circulatory system; Z87.440 Personal history of urinary (tract) infections
CPT/HCPCS: 36415; 70450; 70551; 71045; 80048; 80053; 80061; 80076; 81001; 82607; 82746; 83036; 83880; 84439; 84443; 84484; 85025; 87426; 87804; 93005; 93306; 93886; 95819; 97163; G0378; J2470